=== PATIENT | female | born 1985 | race Hispanic/Latino ===

== ENCOUNTER 2021-08-21 17:15 | Emergency (ER) | payer OTHER, MEDICAID, SELFPAY ==
[2021-08-21 17:26] VITALS: BP 119/75; PULSE 89; RESP 16; TEMP 36.6; O2SAT 99; BMI 19.7
[2021-08-21 18:16] LABS: Add Manual Diff / Slide Review NO; Basophils Absolute Auto 100 /uL (0-100); Basophils Percent Auto 0.9 % (0-2); Eosinophils Absolute Auto 700 /uL (0-450); Hematocrit 36.7 % (36-46); Hemoglobin 12.3 g/dL (12.0-16.0); Lymphocytes Absolute Auto 2700 /uL (1100-4500); Lymphocytes Percent Auto 28.1 % (25-40); Mean Corpuscular HGB Conc 33.6 % (30-36); Mean Corpuscular Hemoglobin 27.3 PG (26-34); Mean Corpuscular Volume 81.1 fL (80-100); Monocytes Absolute Auto 700 /uL (0-900); Neutrophils Absolute Auto 5600 /uL (1500-7000); Platelet Count 431 X10^3/uL (150-400); Red Blood Cell Count 4.53 X10^6/uL (4.0-5.2); White Blood Cell Count 9.7 X10^3/uL (4.5-11.0)
[2021-08-21 18:21] LABS: Alanine Aminotransferase 10 IU/L (<35); Albumin 3.9 g/dL (3.5-5.0); Albumin Globulin Ratio 0.9 (1.0-2.8); Alkaline Phosphatase 77 U/L (38-126); Aspartate Aminotransferase 17 IU/L (14-36); BUN Creatinine Ratio 21.3 (6-22); Bilirubin Total 0.4 mg/dL (0.2-1.3); Blood Urea Nitrogen 10 mg/dL (7-17); Carbon Dioxide 24 mmol/L (22-32); Chloride 104 mmol/L (98-107); Estimated Glomerular Filt Rate > 60 mL/min (>60); Globulin 4.2 g/dL (1.7-4.1); Glucose 90 mg/dL (70-100); HEMOLYSIS < 15 (0-50); Lipase 53 U/L (23-300); Potassium 3.8 mmol/L (3.4-5.1); Sodium 136 mmol/L (137-145); Total Protein 8.1 g/dL (6.3-8.2)
[2021-08-21 20:02] VITALS: BP 114/63; PULSE 88; RESP 16; O2SAT 100
[2021-08-21 20:11] VITALS: TEMP 36.8
--- NOTE | 2021-08-21 20:13 | ED_ITS ---
HPI - General Chief complaint: Abdominal Pain Stated complaint: 5 weeks , bleeding Time Seen by Provider: 08/21/21 20:12 Source: patient Mode of arrival: Ambulatory Limitations: no limitations History of Present Illness HPI Narrative: This is a female who is approximately 5 weeks who has been having some rectal bleeding. Patient has been having pain at the rectum. She has a history of ulcerative colitis she has been off any prescription medications for several years and was using herbal options but found that this was not safe in so she has stopped these. Patient states that she has been having increasing bleeding with bowel movements which has been bright red. It is painful right at the rectum and feels like shards glass by her description. Patient states that her stools have been more formed typically they are very loose and liquidy and is they become more solid it has become more painful. She has had some bloating in her lower abdomen. She states this does not feel like her typical flares which are usually left-sided. She has not had any vaginal b leeding or discharge. She denies any dysuria urgency or frequency. No lightheadedness or passing out, no chest pain or shortness of breath. Patient states she is otherwise healthy. She was seen a corporate travel consultant in the past but had lost her insurance. She is currently in process of regaining it and has been working on setting up follow-up with a provider locally. She denies other major surgeries. Allergic to latex. Related Data Allergies Allergy/AdvReac Type Severity Reaction Status Date / Time Latex, Natural Rubber AdvReac Verified 08/25/17 19:06 Review of Systems Review of Systems ROS Unobtainable: All systems reviewed & are unremarkable except as noted in HPI and below Exam Narrative Exam Narrative: GENERAL: Alert and oriented x three, well-appearing female in mild distress. HEENT: Head normocephalic, atraumatic, EOMI, pupils reactive, face symmetric, moist mucous membranes NECK: Supple, full range of motion CARDIOVASCULAR: Regular rate and rhythm without murmurs, rubs or gallops. RESPIRATORY: Breath sounds equal bilaterally, no wheezes rales or rhonchi. ABDOMEN: Soft, nontender. Normoactive bowel sounds all 4 quadrants. No guarding or rebound, rigidity, no mass, patient has small hemorrhoids on digital rectal exam, no bright red blood but patient is tender. No obvious fissures or external changes to the skin. : No CVA tenderness EXTREMITIES: Normal range of motion, no clubbing or edema. Neurovascularly intact NEUROLOGICAL: Cranial nerves II through XII grossly intact. Moving all extremities SKIN: Warm, dry, no petechiae, no rashes or lesions. Initial Vital Signs Initial Vital Signs: Vital Signs Temperature 97.8 F 08/21/21 17:26 Pulse Rate 89 08/21/21 17:26 Respiratory Rate 16 08/21/21 17:26 Blood Pressure 119/75 08/21/21 17:26 Pulse Oximetry 99 08/21/21 17:26 Course Orders Ordered: ED Orders 08/21/21 19:30 Urine Microscopic Stat 08/21/21 20:20 US OB <= 14 weeks fetus Stat Reevaluation(s) Reevaluation #1: Updated patient on her current findings. We discussed options for treatment. Suppository such as Proctofoam has some risk versus benefit but she can do magnesium citrate tox hemorrhoid beds externally. Time: 21:25 Vital Signs Vital signs: Vital Signs - 8 hr 08/21/21 20:02 08/21/21 20:11 08/21/21 21:35 Temperature 98.2 F Pulse Rate 88 79 Respiratory Rate 16 18 Blood Pressure 114/63 134/76 Pulse Oximetry 100 100 MDM - OB/Uterine Contractions Lab Data Result diagrams: 08/21/21 17:20 08/21/21 17:20 Labs: Lab Results 08/21/21 08/21/21 08/21/21 Range/Units 17:20 17:20 17:40 WBC 9.7 (4.5-11.0) X10^3/uL RBC 4.53 (4.0-5.2) X10^6/uL Hgb 12.3 (12.0-16.0) g/dL Hct 36.7 (36-46) % MCV 81.1 (80-100) fL MCH 27.3 (26-34) PG MCHC 33.6 (30-36) % RDW 20.0 H (11.6-14.8) % Plt Count 431 H (150-400) X10^3/uL Neut % (Auto) 57.0 (50-75) % Lymph % (Auto) 28.1 (25-40) % [place] % (Auto) 7.0 (3-14) % Eos % (Auto) 7.0 H (2-4) % Baso % (Auto) 0.9 (0-2) % Neut # (Auto) 5600 (0533-7015) /uL Lymph # (Auto) 2700 (8720-4715) /uL [place] # (Auto) 700 (0-900) /uL Eos # (Auto) 700 H (0-450) /uL Baso # (Auto) 100 (0-100) /uL Sodium 136 L (137-145) mmol/L Potassium 3.8 (3.4-5.1) mmol/L Chloride 104 (98-107) mmol/L Carbon Dioxide 24 (22-32) mmol/L BUN 10 (7-17) mg/dL Creatinine 0.47 L (0.52-1.04) mg/dL Estimated GFR > 60 (>60) mL/min BUN/Creatinine Ratio 21.3 (6-22) Glucose 90 (70-100) mg/dL Calcium 9.0 (8.4-10.2) mg/dL Total Bilirubin 0.4 (0.2-1.3) mg/dL AST 17 (14-36) IU/L ALT 10 (<35) IU/L Alkaline Phosphatase 77 (38-126) U/L Total Protein 8.1 (6.3-8.2) g/dL Albumin 3.9 (3.5-5.0) g/dL Globulin 4.2 H (1.7-4.1) g/dL Albumin/Globulin Ratio 0.9 L (1.0-2.8) Lipase 53 (23-300) U/L HCG, Quant 6279.7 mIU/mL Urine RBC (0-5/HPF) Urine WBC (0-5/HPF) Ur Squamous Epith Cells (0-5/HPF) Urine Bacteria (None) Granular Casts (None) Urine Mucus (Negative) Ur Culture Indicated? Blood Type 08/21/21 08/21/21 Range/Units 17:40 19:30 WBC (4.5-11.0) X10^3/uL RBC (4.0-5.2) X10^6/uL Hgb (12.0-16.0) g/dL Hct (36-46) % MCV (80-100) fL MCH (26-34) PG MCHC (30-36) % RDW (11.6-14.8) % Plt Count (150-400) X10^3/uL Neut % (Auto) (50-75) % Lymph % (Auto) (25-40) % [place] % (Auto) (3-14) % Eos % (Auto) (2-4) % Baso % (Auto) (0-2) % Neut # (Auto) (6432-5335) /uL Lymph # (Auto) (8378-7626) /uL [place] # (Auto) (0-900) /uL Eos # (Auto) (0-450) /uL Baso # (Auto) (0-100) /uL Sodium (137-145) mmol/L Potassium (3.4-5.1) mmol/L Chloride (98-107) mmol/L Carbon Dioxide (22-32) mmol/L BUN (7-17) mg/dL Creatinine (0.52-1.04) mg/dL Estimated GFR (>60) mL/min BUN/Creatinine Ratio (6-22) Glucose (70-100) mg/dL Calcium (8.4-10.2) mg/dL Total Bilirubin (0.2-1.3) mg/dL AST (14-36) IU/L ALT (<35) IU/L Alkaline Phosphatase (38-126) U/L Total Protein (6.3-8.2) g/dL Albumin (3.5-5.0) g/dL Globulin (1.7-4.1) g/dL Albumin/Globulin Ratio (1.0-2.8) Lipase (23-300) U/L HCG, Quant mIU/mL Urine RBC 0-1/hpf (0-5/HPF) Urine WBC 0-1/hpf (0-5/HPF) Ur Squamous Epith Cells 0-1 /hpf (0-5/HPF) Urine Bacteria Occasional (0-1) (None) Granular Casts 0-1/lpf (None) Urine Mucus 1+ H (Negative) Ur Culture Indicated? Cult not indicated Blood Type O Positive Point of Care Testing Test Results Positive Urine Dip Bedside Urine Glucose Negative Bedside Urine Bilirubin - Negative Bedside Urine Ketone +/- 5 Urine Specific [place] 1.015 Bedside Urine Occult Blood - Negative Bedside Urine pH 6.0 Bedside Urine Protein +/- 15 Bedside Urine Urobilinogen - Negative Bedside Urine Nitrite - Negative Bedside Urine Leukocytes - Negative Esterase Imaging Data US - OB: Radiologist's Impression: Launch?[address] [address] Ultrasound Report Signed Patient: Angi Muniz MR#: [id number] : 1985 Acct:[id number] Age/Sex: 35 / F Date of Service: 08/21/21 Loc: ED Accession Number: [id number] ?? Procedure: US OB <= 14 weeks fetus Ordering Provider: Katelyn Shin D.O. PROCEDURE:? US OB <= 14 WEEKS FETUS ? INDICATIONS:? ABDOMINAL PAIN WITH ? OUTSIDE/PRIOR DATING DATA:? Last menstrual period (LMP):? 07/16/2021.? LMP-based estimated date of delivery (KAMILAH):? 04/22/2022.? First dating scan (date and location):? 08/21/2021.? Estimated date of delivery (KAMILAH) from first dating scan:? 04/18/2022 by gestational sac diameter. ? TECHNIQUE:? Real-time scanning was performed of the fetus and maternal pelvic organs, with image documentation.? Endovaginal scanning was also performed to better visualize the fetus and maternal ovaries.? ? COMPARISON:? None. ? FINDINGS:? ? Embryo:? There is an intrauterine with a gestational sac, yolk sac, and small pole demonstrated.? The mean gestational sac diameter measures 1.0 cm corresponding to a gestational age of 5 weeks 5 days.? The diminutive pole measures approximately 0.1 cm and is out of range for dating.? No heart motion identified, likely due to early gestational age.? No subchorionic hematoma identified. ? Maternal organs:? The ovaries appear within normal size limits, measuring 3.0 x 2.2 x 1.8 cm on the right and 3.3 x 2.4 x 3.3 cm on the left.? There is a thick-walled cyst in the left ovary measuring up to 2.0 cm consistent with a corpus luteal cyst. ? ? IMPRESSION:? ? 1. Intrauterine with a mean sac diameter corresponding to a calculated gestational age of 5 weeks 5 days corresponding to estimated delivery date of 04/18/2022. ? 2. Probable diminutive early pole identified along the yolk sac.? No heart motion was detected, likely due to early gestational age.? Recommend clinical follow-up and a short-term repeat ultrasound if indicated. ? 3. Probable corpus luteal cyst in the left ovary. ? We strive to produce accurate, complete, and clear reports of imaging services. To assist us in improving patient care, this report was composed using standard report templates and voice recognition software. Therefore, it may contain abnormal punctuation, insertions and/or omissions. Occasional wrong-word or sound-alike substitutions may occur. Though we review the report and make efforts to correct it, we do recomme nd that the report be read carefully in proper context to recognize any text inaccuracies. ? ? Dictated by: Shade Hinkle M.D. on 08/21/2021 at 23:20 ? ? Approved by: Shade Hinkle M.D. on 08/21/2021 at 23:25?? MDM Narrative Medical decision making narrative: This is a female approximately 5 weeks by dates with ultrasound consistent with dates who has had rectal bleeding with a history of ulcerative colitis. Patient has possibly hemorrhoids verses UC at the rectal area. She is no longer on any prescription medications. We discussed helping her follow-up with a corporate travel consultant and she is also in process of setting up follow-up with primary care in/. On exam there are some small hemorrhoids she is quite tender. Labs are otherwise reassuring. She had some bloating and abdominal discomfort but has not had vaginal bleeding ultrasound was obtained does not show any clear signs of ectopic pole was too small to date. Return precautions discussed, all questions answered. Patient is already in process of setting up follow up. Discharge Plan Departure Patient Disposition: Home Clinical Impression: Hemorrhoids, Activity Restrictions/Additional Instructions: Your exam today is consistent with either hemorrhoids and may be complicated by flare of ulcerative colitis at the rectum. Please call to follow up with provider, option is included below. You can contact your prior corporate travel consultant ask if a proctocort suppository would be appropriate. You may take magnesium citrate to help soften your stools. You can use tucks hemorrhoid pads to the affected area but are more helpful externally. I would recommend continue to do Sitz baths or warm baths regularly. Please return for rapidly worsening pain, lightheadedness or passing out, new or worsening abdominal pain, persistent vomiting, vaginal bleeding, worsening rectal bleeding, large clots or other new or concerning symptoms. Referrals: Yuliya Urbina MD [Primary Care Provider] - Dmitry Pretty MD [Physician] -
--- NOTE | 2021-08-21 20:20 | DI.US.S_ITS ---
PROCEDURE: US OB <= 14 WEEKS FETUS INDICATIONS: ABDOMINAL PAIN WITH OUTSIDE/PRIOR DATING DATA: Last menstrual period (LMP): 07/16/2021. LMP-based estimated date of delivery (KAMILAH): 04/22/2022. First dating scan (date and location): 08/21/2021. Estimated date of delivery (KAMILAH) from first dating scan: 04/18/2022 by gestational sac diameter. TECHNIQUE: Real-time scanning was performed of the fetus and maternal pelvic organs, with image documentation. Endovaginal scanning was also performed to better visualize the fetus and maternal ovaries. COMPARISON: None. FINDINGS: Embryo: There is an intrauterine with a gestational sac, yolk sac, and small pole demonstrated. The mean gestational sac diameter measures 1.0 cm corresponding to a gestational age of 5 weeks 5 days. The diminutive pole measures approximately 0.1 cm and is out of range for dating. No heart motion identified, likely due to early gestational age. No subchorionic hematoma identified. Maternal organs: The ovaries appear within normal size limits, measuring 3.0 x 2.2 x 1.8 cm on the right and 3.3 x 2.4 x 3.3 cm on the left. There is a thick-walled cyst in the left ovary measuring up to 2.0 cm consistent with a corpus luteal cyst. IMPRESSION: 1. Intrauterine with a mean sac diameter corresponding to a calculated gestational age of 5 weeks 5 days corresponding to estimated delivery date of 04/18/2022. 2. Probable diminutive early pole identified along the yolk sac. No heart motion was detected, likely due to early gestational age. Recommend clinical follow-up and a short-term repeat ultrasound if indicated. 3. Probable corpus luteal cyst in the left ovary. We strive to produce accurate, complete, and clear reports of imaging services. To assist us in improving patient care, this report was composed using standard report templates and voice recognition software. Therefore, it may contain abnormal punctuation, insertions and/or omissions. Occasional wrong-word or sound-alike substitutions may occur. Though we review the report and make efforts to correct it, we do recommend that the report be read carefully in proper context to recognize any text inaccuracies. Dictated by: Shade Hinkle M.D. on 08/21/2021 at 23:20 Approved by: Shade Hinkle M.D. on 08/21/2021 at 23:25
[2021-08-21 20:31] LABS: Bacteria Urine Occasional (0-1); Culture Indicated Urine Cult Not Indicated; Granular Casts Urine 0-1/LPF; Mucus Urine 1+ (Negative); RBC Urine 0-1/HPF (0-5/HPF); Squamous Epithelial Cell Urine 0-1 /HPF (0-5/HPF); WBC Urine 0-1/HPF (0-5/HPF)
[2021-08-21 20:44] LABS: HCG Quantitative /Beta subunit 6279.7 mIU/mL
[2021-08-21 21:35] VITALS: BP 134/76; PULSE 79; RESP 18; O2SAT 100
== END 2021-08-21 21:49 | disposition home or self-care (01) ==
PROVIDERS: Emergency Medicine; Emergency Provider Emergency Medicine; PCP Family Medicine
DX: O22.41 Hemorrhoids in pregnancy, first trimester (principal); Z3A.01 Less than 8 weeks gestation of pregnancy
CPT/HCPCS: 36415; 76801; 76817; 80053; 81003; 81015; 81025; 83690; 84702; 85025; 86900; 86901; 99283

== ENCOUNTER → 2021-09-24 16:34 | Outpatient (CLI) | payer OTHER, MEDICAID, SELFPAY ==
[2021-09-24 18:26] LABS: Add Manual Diff / Slide Review NO; Basophils Absolute Auto 0 /uL (0-100); Basophils Percent Auto 0.5 % (0-2); Eosinophils Absolute Auto 600 /uL (0-450); Eosinophils Percent Auto 6.4 % (2-4); Hemoglobin 11.9 g/dL (12.0-16.0); Lymphocytes Absolute Auto 2600 /uL (1100-4500); Lymphocytes Percent Auto 27.9 % (25-40); Mean Corpuscular HGB Conc 33.1 % (30-36); Mean Corpuscular Hemoglobin 27.2 PG (26-34); Monocytes Absolute Auto 600 /uL (0-900); Monocytes Percent Auto 6.2 % (3-14); Neutrophils Absolute Auto 5400 /uL (1500-7000); Platelet Count 449 X10^3/uL (150-400); Red Blood Cell Count 4.39 X10^6/uL (4.0-5.2); Red Cell Distribution Width 15.4 % (11.6-14.8); White Blood Cell Count 9.2 X10^3/uL (4.5-11.0)
[2021-09-24 19:21] LABS: Hepatitis B Surface Antigen NEGATIVE s/c (NEGATIVE); Rubella Antibody IgG 2.9 IU/mL (>15)
[2021-09-24 19:35] LABS: HIV 1 & 2 Ab/Ag 4th Gen Combo NEGATIVE (NEGATIVE); Hep C Virus Ab w/Reflex Quant NEGATIVE s/c (NEGATIVE)
[2021-09-24 19:56] LABS: Appearance Urine UA CLEAR; Bilirubin Urine UA NEGATIVE (NEGATIVE); Color Urine UA YELLOW; Glucose Urine UA NEGATIVE (Negative); Ketones Urine UA NEGATIVE (NEGATIVE); Leukocyte Esterase Urine UA NEGATIVE (NEGATIVE); Nitrite Urine UA NEGATIVE (Negative); Occult Blood Urine UA TRACE-LYSED (Negative); Protein Urine UA NEGATIVE (Negative); Urobilinogen Urine UA 0.2 E.U./dL (0.2)
[2021-09-24 20:01] LABS: pH Urine UA 6.5 (4.5-8.0)
[2021-09-25 07:12] LABS: RPR Screen Non Reactive (Non Reactive)
[2021-09-25 10:39] LABS: Varicella IgG Antibody 693 index (Immune >165)
== END ==
PROVIDERS: PCP Family Medicine; Referring Provider Obstetrics & Gynecology; Visit Provider Obstetrics & Gynecology
DX: Z34.01 Encounter for supervision of normal first pregnancy, first trimester (principal)
CPT/HCPCS: 36415; 80055; 81003; 86787; 86803; 86850; 86900; 86901; 87086; 87389

== ENCOUNTER → 2021-10-16 18:22 | Outpatient (ROUT) | payer OTHER, MEDICAID, SELFPAY ==
[2021-10-16 19:54] LABS: Urine N gonorrhoeae NOT DETECTED
[2021-10-16 20:02] LABS: Urine Chlamydia NOT DETECTED
== END ==
PROVIDERS: PCP Family Medicine; Visit Provider Obstetrics & Gynecology
DX: Z34.02 Encounter for supervision of normal first pregnancy, second trimester (principal); Z3A.13 13 weeks gestation of pregnancy
CPT/HCPCS: 87491; 87591

== ENCOUNTER → 2021-11-13 12:02 | Outpatient (CLI) | payer OTHER, MEDICAID, SELFPAY ==
[2021-11-16 22:07] LABS: AFP Value 40.8 ng/mL (.); Gest Age on Col Date 17.1 weeks (.); Insulin Dep Diabetes No (.); OSBR Risk 1IN 10000 (.); Results Report (.); Test Results *Screen Negative* (.)
== END ==
PROVIDERS: PCP Registered Nurse Diabetes Educator; Referring Provider Obstetrics & Gynecology; Visit Provider Obstetrics & Gynecology
DX: Z34.02 Encounter for supervision of normal first pregnancy, second trimester (principal); Z3A.17 17 weeks gestation of pregnancy
CPT/HCPCS: 36415; 82105

== ENCOUNTER → 2021-12-04 14:54 | Outpatient (CLI) | payer OTHER, MEDICAID, SELFPAY ==
--- NOTE | 2021-12-04 14:55 | DI.US.S_ITS ---
PROCEDURE: US OB >= 14 WEEKS FETUS INDICATIONS: ANATOMY OUTSIDE/PRIOR DATING DATA: Last menstrual period (LMP): 07/16/2021. LMP-based estimated date of delivery (KAMILAH): 04/22/2022 First dating scan (date and location): 08/21/2021. Estimated date of delivery (KAMILAH) from first dating scan: 04/18/2022. TECHNIQUE: Real-time scanning was performed of the fetus, with image documentation and biometric measurements. Endovaginal scanning: Performed COMPARISON: None. FINDINGS: General: A single living intrauterine gestation is present. Presentation: Breech. Placenta: Placental position is anterior, without previa. Amniotic fluid index: 18.5 cm, normal range is 5-24 cm. Single deepest vertical pocket is 6.6 cm. heart rate: 152 beats per minute. Maternal cervical canal: Cervix is widely dilated. Internal os is dilated to 5 mm while the mid cervix is dilated to 1.5 cm. There is approximately 5 mm of cervix length left between funneling and the external os. biometrics: Biparietal diameter: 4.7 cm, 20 weeks 2 days Head circumference: 18.8 cm, 20 weeks 3 days Abdominal circumference: 14.8 cm, 20 weeks 0 days Femur length: 3.6 cm, 21 week 3 days Clinically estimated gestational age: 20 week 5 day Composite gestational age from present scan: 20 week 4 day Estimated weight and percentile: 361 g, 41 percentile Anatomic survey: Neuro: Ventricles are non-dilated at less than 10 mm. Cisterna magna is normal at 3-11 mm. Cerebellum is normal in size and morphology. Nuchal skin fold: Normal at less than 6 mm between 14-21 weeks gestational age. Face: Nose and lips, facial profile are normal. Spine: No evidence for spina bifida. Heart: 4-chambered heart is present, with normal ventricular outflow tracts. Diaphragm: Diaphragm is intact. Stomach: Left-sided stomach is present. Kidneys: No hydronephrosis. Normal is less than 5 mm in 2nd trimester, less than 7 mm in 3rd trimester. Cord: 3-vessel cord has orthotopic insertion. Bladder: Normal in size. Extremities: All 4 extremities identified. IMPRESSION: 1. Single live intrauterine consistent with a 20 week 4 day gestation by current ultrasound. 2. Incompetent cervix. There is significant funneling in the mid endocervical canal with approximately 5 mm of cervical length remaining Note: Critical results were discussed with the patient's on-call physician in the birthing center at 06:07 PM [place] time on 12/04/21 Approved by: Guillermo Gonzalez M.D. on 12/04/2021 at 18:09
== END ==
PROVIDERS: PCP Registered Nurse Diabetes Educator; Referring Provider Obstetrics & Gynecology; Visit Provider Obstetrics & Gynecology
DX: Z36.89 Encounter for other specified antenatal screening (principal); O34.32 Maternal care for cervical incompetence, second trimester; Z3A.20 20 weeks gestation of pregnancy
CPT/HCPCS: 76811

== ENCOUNTER 2021-12-04 17:12 | Observation (INO) | payer OTHER, MEDICAID, SELFPAY ==
--- NOTE | 2021-12-04 20:35 | PM.OBHP.1 ---
OB HPI Date/Time Date of admission: 12/04/21 Date Patient Seen: 12/04/21 Time Patient Seen: 18:00 History of Present Condition Chief complaint: Eval : 1 Estimated Gestational Age (weeks): 21 Narrative: Angi Muniz is a 35 year old female who was sent to the office from her 20 week ultrasound due to finding of incompetent cervix on the ultrasound. She denies any significant cramping. Feels rare cramps, then resolves. She has noted some increased white discharge, and occasional watery discharge but nothing that she has needed pain the liners for and has not noted this in her pants. No vaginal bleeding. She has been feeling movement. has been uncomplicated. She was noted to have an arcuate uterus on her initial 9 week office OB ultrasound. She has had no cervical surgical procedures. Indications Other reason(s) for admission: Incompetent cervix with cervical length 5 mm beneath the funneling. History of Present care: good care Dating criteria: LMP confirmed by 1st trimester US Ultrasounds: normal 1st trimester US and abnormal US findings ( Incompetent cervix, see report. Normal survey. Anterior placenta.) Obstetrical complications: other (incompetent cervix dx today) Narrative: [place] [address] Ultrasound Report Signed Patient: Angi Muniz MR#: [id number] : 1985 Acct:[id number] Age/Sex: 35 / F Date of Service: 12/04/21 Loc: US Accession Number: [id number] ?? Procedure: US OB >= 14 weeks Fetus Ordering Provider: Sharri Sykes MD PROCEDURE:? US OB >= 14 WEEKS FETUS ? INDICATIONS:? ANATOMY ? OUTSIDE/PRIOR DATING DATA:? Last menstrual period (LMP):? 07/16/2021.? LMP-based estimated date of delivery (KAMILAH):? 04/22/2022 First dating scan (date and location):? 08/21/2021.? Estimated date of delivery (KAMILAH) from first dating scan:? 04/18/2022. ? TECHNIQUE:? Real-time scanning was performed of the fetus, with image documentation and biometric measurements.? Endovaginal scanning:? Performed ? COMPARISON:? None. ? ? FINDINGS:? ? General:? A single living intrauterine gestation is present.? Presentation:? Breech.? Placenta:? Placental position is anterior, without previa.? ? Amniotic fluid index:? 18.5 cm, normal range is 5-24 cm.? Single deepest vertical pocket is 6.6 cm. heart rate:? 152 beats per minute.? Maternal cervical canal:? Cervix is widely dilated.? Internal os is dilated to 5 mm while the mid cervix is dilated to 1.5 cm.? There is approximately 5 mm of cervix length left between funneling and the external os. ? biometrics:? Biparietal diameter:? 4.7 cm, 20 weeks 2 days Head circumference:? 18.8 cm, 20 weeks 3 days Abdominal circumference:? 14.8 cm, 20 weeks 0 days Femur length:? 3.6 cm, 21 week 3 days Clinically estimated gestational age:? 20 week 5 day? Composite gestational age from present scan:? 20 week 4 day Estimated weight and percentile:? 361 g, 41 percentile ? Anatomic survey:? Neuro:? Ventricles are non-dilated at less than 10 mm.? Cisterna magna is normal at 3-11 mm.? Cerebellum is normal in size and morphology. Nuchal skin fold:? Normal at less than 6 mm between 14-21 weeks gestational age.? Face:? Nose and lips, facial profile are normal.? Spine:? No evidence for spina bifida.? Heart:? 4-chambered heart is present, with normal ventricular outflow tracts.? Diaphragm:? Diaphragm is intact.? Stomach:? Left-sided stomach is present.? Kidneys:? No hydronephrosis.? Normal is less than 5 mm in 2nd trimester, less than 7 mm in 3rd trimester.? Cord:? 3-vessel cord has orthotopic insertion.? Bladder:? Normal in size.? Extremities:? All 4 extremities identified.? ? ? IMPRESSION:? ? 1. Single live intrauterine consistent with a 20 week 4 day gestation by current ultrasound. ? 2. Incompetent cervix.? There is significant funneling in the mid endocervical canal with approximately 5 mm of cervical length remaining ? Note:? Critical results were discussed with the patient's on-call physician in the birthing center at 06:07 PM [place] time on 12/04/21 Preadmission Labs Blood type: O (+) positive -: Antibody screen: negative, HBsAG: negative, HSV 1: negative, HSV 2: negative and RPR/VDLR: negative -: Chlamydia screen: not detected and Gonorrhea screen: not detected -: Rubella: not immune and Varicella: immune HCAB: negative Cell-free DNA: low risk female MSAFP normal Evaluation Evaluation Baseline heart rate: 150 Variability: Average (6-10) Dilation: 1-2 cm Consistency: soft Comments: On toco, some initial uterine irritability, 1 small contraction over first 15 minutes, then resolved. [facility] Medical History Anemia (~1994) PCOS (polycystic ovarian syndrome) Ulcerative colitis (~2008) Family History Mother Diabetes mellitus Hypertension Grandmother Brain aneurysm Father Cirrhosis Grandfather Kidney failure Grandfather Diabetes mellitus History of heart disease Social History marital status: unmarried,living together household members: significant other lives independently: Yes housing: house pets and animals: No education level: college (Some college) occupational status: unemployed current occupational exposures/hazards: No special chris needs: No travel history: over 6 months ago seatbelt use: always helmet use: Yes water heater temp set < 120 deg: No (Will check and ) working smoke detector in home: Yes fire extinguisher in home: Yes carbon monox detector in home: Yes firearms in home: No do you feel safe at home: Yes Smoking Status: Never smoker second hand exposure: Yes (s/o recently quit when pt found out she was ) alcohol intake: never substance use type: marijuana (previously used with UC flares, not since ) during the past year weight has: remained stable well-balanced diet: daily or most days daily servings fruits/ve-4 caffeine: No Type(s) of exercise: bicycling and weight lifting frequency: 3-4 times per week Meds Home Medications and Allergies Home Medications Medication Instructions Recorded Confirmed Type L.acid,shira-B.animal,bifid, See Rx Instructions .Route .COMPLEX 09/18/21 12/04/21 History 50 billion cell capsule,delayed rel (Fortify [place] Women Probiotic) prenat.vits,neha,qrl-gzck-ewkly 1 tab PO DAILY 09/18/21 12/04/21 History ondansetron 4 mg disintegrating 4 mg PO Q6H PRN nausea and 10/16/21 12/04/21 Rx tablet vomiting #30 tabs Allergies Allergy/AdvReac Type Severity Reaction Status Date / Time Latex, Natural Rubber Allergy Severe Anaphylaxis Verified 12/04/21 14:10 OB Exam Narrative Exam Narrative: General: Well-appearing female. anxious, but no acute physical distress. Abdomen gravid, nontender. Normal external genitalia Speculum exam: White discharge, No pooling of fluid. Negative fern test, +nitrazine Visually cervix approx 1/2 cm Digital exam: 1cm dilated external os, approx 2.5-3cm long, somewhat full ROSARIO Assessment and Plan Assessment and Plan Assessment and Plan narrative: 35 yo G1 @ 21 wk 1day EGA with incompetent cervix. No signs of labor. No signs of infection on exam. Called [facility], who did not have availability for the patient, but recommended check with [facility]. Patient being transferred to [facility], accepting physician Dr. Dea Topete, for evaluation for possible emergency cerclage. Will defer any labs to there. Discuss with the patient the incompetent cervix. Patient agreeable to transfer To [facility],for evaluation for possible cerclage.
[2021-12-04 20:59] VITALS: BP 108/59
[2021-12-04 21:30] LABS: COVID19 -Nasal RAPID Negative (Negative)
== END 2021-12-05 00:40 | disposition short-term general hospital (02) ==
PROVIDERS: Obstetrics & Gynecology; Admitting Provider Obstetrics & Gynecology; PCP Registered Nurse Diabetes Educator; Referring Provider Obstetrics & Gynecology; Visit Provider Obstetrics & Gynecology
DX: O34.32 Maternal care for cervical incompetence, second trimester (principal); Z3A.21 21 weeks gestation of pregnancy; Z20.822 Contact with and (suspected) exposure to COVID-19; Z36.89 Encounter for other specified antenatal screening; Z3A.20 20 weeks gestation of pregnancy
CPT/HCPCS: 59050; 76811; 87635; 96360; C9803; G0378; G0379

== ENCOUNTER 2021-12-10 10:40 | Emergency (ER) | payer OTHER, MEDICAID, SELFPAY ==
[2021-12-10 10:45] VITALS: BP 110/70; PULSE 78; RESP 18; TEMP 36.8; O2SAT 100; BMI 21.2
--- NOTE | 2021-12-10 10:59 | DI.US.S_ITS ---
PROCEDURE: US PERIPH VENOUS UP EXTREM LT INDICATIONS: pain, redness, swelling, recent IV TECHNIQUE: Real-time imaging, as well as color and pulse Doppler interrogation, was performed of the left upper extremity deep veins from the inferior neck to the antecubital fossa. COMPARISON: None. FINDINGS: The internal jugular vein, visualized portions of the subclavian vein, axillary, and brachial veins are free of intraluminal thrombus. Where physically possible, the veins are normally compressible. Color and pulse Doppler demonstrate normal intraluminal flow, with expected phasicity and pulsatility. Additional scanning of the cephalic and basilic veins of the superficial system demonstrate normal compressibility, without thrombus. There is acute thrombosis of the left cephalic vein in the forearm from the wrist to minimally above the elbow. This is a superficial vein. IMPRESSION: 1. Acute thrombosis of the left cephalic vein from the wrist to minimally above the elbow. 2. No evidence acute DVT of the left upper extremity. Dictated by: Homero Andres M.D. on 12/10/2021 at 12:33 Approved by: Homero Andres M.D. on 12/10/2021 at 12:36
--- NOTE | 2021-12-10 10:59 | ED_ITS ---
HPI - Extremity Problem General Chief complaint: Extremity Problem,Nontraumatic Stated complaint: Infection in arm after having IV for 4 days Time Seen by Provider: 12/10/21 10:46 History of Present Illness HPI Narrative: 36-year-old female nonsmoker with a history of ulcerative colitis is a at 20 weeks and presents with her for evaluation of pain, redness and swelling in her left arm in the location of a recent IV. She had presented here for 20 week evaluation and on exam was found to have an abnormal cervix and was eventually transferred to [place] where she was recently hospitalized for a cervical cerclage. She had an IV in place in her left forearm. Over the past day or 2 she is noticed an increasing area of redness, pain and swelling in that location. She denies any systemic findings such as dizziness, weakness or lightheadedness. She denies any fever or chills. She denies nausea, vomiting or diarrhea. She denies any abdominal or pelvic pain and has a scant amount of to be expected vaginal discharge. Related Data Home Medications Medication Instructions Recorded Confirmed L.acid,shira-B.animal,bifid,infant See Rx Instructions .Route .COMPLEX 09/18/21 12/10/21 50 billion cell capsule,delayed rel ([employer] [place] Women Probiotic) prenat.vits,neha,[id number] 1 tab PO DAILY 09/18/21 12/10/21 Previous Rx's Medication Instructions Recorded ondansetron 4 mg disintegrating 4 mg PO Q6H PRN nausea and 10/16/21 tablet vomiting #30 tabs Allergies Allergy/AdvReac Type Severity Reaction Status Date / Time Latex, Natural Rubber Allergy Severe Anaphylaxis Verified 12/04/21 14:10 Review of Systems Review of Systems Narrative: GENERAL: Denies chills, fatigue, malaise, fever, sweats. HEENT: Denies sinus pain, ear pain, sore throat, difficulty swallowing, dizziness. RESPIRATORY: Denies dyspnea, cough, wheezing, hemoptysis, sputum. CARDIOVASCULAR: Denies chest pain, palpitations, orthopnea, edema, GASTROINTESTINAL: Denies nausea, vomiting, abdominal pain, diarrhea, constipation, melena. : Denies dysuria, frequency, incontinence, hematuria, urinary retention. MUSCULOSKELETAL: denies weakness, joint pain, or bony pain SKIN: See HPI NEUROLOGIC: Denies weakness, headache, numbness, change in speech, confusion, seizures, incoordination. PSYCHIATRIC: No concerning psychosocial issues. 12 point review of systems is negative except for those stated above Patient History Medical History Anemia (~1994) PCOS (polycystic ovarian syndrome) Ulcerative colitis (~2008) Family History Mother Diabetes mellitus Hypertension Grandmother Brain aneurysm Father Cirrhosis Grandfather Kidney failure Grandfather Diabetes mellitus History of heart disease Social History marital status: unmarried,living together household members: significant other lives independently: Yes housing: house pets and animals: No education level: college (Some college) occupational status: unemployed current occupational exposures/hazards: No special chris needs: No travel history: over 6 months ago seatbelt use: always helmet use: Yes water heater temp set < 120 deg: No (Will check and ) working smoke detector in home: Yes fire extinguisher in home: Yes carbon monox detector in home: Yes firearms in home: No do you feel safe at home: Yes Smoking Status: Never smoker second hand exposure: Yes (s/o recently quit when pt found out she was ) alcohol intake: never substance use type: marijuana (previously used with UC flares, not since ) during the past year weight has: remained stable well-balanced diet: daily or most days daily servings fruits/ve-4 caffeine: No Type(s) of exercise: bicycling and weight lifting frequency: 3-4 times per week Smoking Status: Never smoker alcohol intake frequency: holidays/special occasions only Substance Use Type: does not use Exam Narrative Exam Narrative: GEN: AOx3 and in mild distress EYES: Pupils are equal, round, and reactive to light and accommodation. Extraoccular muscles are intact bilaterally. There is no subconjunctival hemorrhage or exudate. CHEST: Lungs are clear to auscultation bilaterally and free of wheezes, rales, or rhonchi. Heart rate is regular rhythm, there are no murmurs, clicks, rubs, or gallops. There is no chest wall tenderness. ABD: Abdomen is soft and nontender. There is no guarding or rebound. Bowel sounds are normal in all 4 quadrants. There is no mass or organomegaly. EXT: Full painless ROM of all extremities with no loss of sensation or strength. SKIN: 4 x 6 area of erythema, warmth and tenderness on volar surface of left forearm, no break in the skin, no fluctuance Initial Vital Signs Initial Vital Signs: Vital Signs Temperature 98.3 F 12/10/21 10:45 Pulse Rate 78 12/10/21 10:45 Respiratory Rate 18 12/10/21 10:45 Blood Pressure 110/70 12/10/21 10:45 Pulse Oximetry 100 12/10/21 10:45 Oxygen Delivery Method 12/10/21 10:45 Course Orders Ordered: ED Orders 12/10/21 10:59 US periph venous up extrem lt Stat Consultations Consultation #1: Discussed with on-call Radiology, though thrombus is longer than 5 cm it is quite distant from the deep venous system Consultation #2: Discussed history, physical and findings with on-call Hematology, recommends against anticoagulation, warm compresses only with appropriate discharge instructions and return precautions MDM - Extremity (Nontraumatic) MDM Narrative Medical decision making narrative: Patient with pain, redness and minimal swelling on her left forearm after having a peripheral IV for 4 days along with hospitalization. She denies any systemic complaints such as chest pain, shortness of breath or cough. She has no fever or chills. Imaging demonstrates superficial thrombophlebitis which is quite distant from the deep venous system. There was consideration of infection but thought unlikely given ultrasound findings. Furthermore, after discussion with Radiology and hematology it is most appropriate to treat with warm compresses only and no anticoagulation. Patient given return precautions and has had questions answered to her apparent satisfaction Discharge Plan Departure Patient Disposition: Home Clinical Impression: Superficial thrombophlebitis during Instructions: DI for Superficial Thrombophlebitis Activity Restrictions/Additional Instructions: *You have been diagnosed with [superficial thrombophlebitis of your left arm, likely due to a combination of recent IV, hospitalization, and your . It does not need any specific treatment other than warm compresses daily.] *What to do: *Please continue to take your regular medications as directed. [ *Please follow up with your primary care provider in 2-3 days, call for an appointment. Let them know you were seen in the Emergency Department and that we ask that you be seen in follow up. We will electronically transmit a record of today's note if your PCP is in our system *If you do not have a primary care provider please contact the [facility] Resource line at [phone]. They will ask some questions about your medical history and help get you set up with a doctor in the community. *Return to Emergency Department if you should have any new, worsening or concerning symptoms, such as [fever greater than 101 F, shaking chills, worsening pain, persistent vomiting or other bothersome symptoms] Prescriptions: No Action prenat.vits,neha,[id number] Tablet 1 tab PO DAILY [employer] [place] [facility] Probiotic 50 billion cell capsule,delayed release(DR/EC) See Rx Instructions .ROUTE .COMPLEX Rx Instructions: Take as prescribed. ondansetron 4 mg tablet,disintegrating 4 mg PO Q6H PRN (Reason: nausea and vomiting) Qty: 30 3RF Referrals: Mynor Bolaños ARNP [Primary Care Provider] - Visit Report Forms: Patient Portal/API
[2021-12-10 11:00] VITALS: BP 110/62; PULSE 86; O2SAT 100
[2021-12-10 13:30] VITALS: BP 111/68; PULSE 85; O2SAT 99
[2021-12-10 13:40] VITALS: BP 111/68; PULSE 83; RESP 16; O2SAT 99
== END 2021-12-10 13:48 | disposition home or self-care (01) ==
PROVIDERS: Emergency Provider Emergency Medicine; PCP Registered Nurse Diabetes Educator
DX: O26.892 Other specified pregnancy related conditions, second trimester (principal); T80.1XXA Vascular complications following infusion, transfusion and therapeutic injection, initial encounter; I80.8 Phlebitis and thrombophlebitis of other sites; Z3A.20 20 weeks gestation of pregnancy
CPT/HCPCS: 93971; 99281; 99283

== ENCOUNTER → 2022-02-05 14:53 | Outpatient (CLI) | payer OTHER, MEDICAID, SELFPAY ==
[2022-02-05 18:09] LABS: Hematocrit 28.4 % (36-46); Hemoglobin 9.2 g/dL (12.0-16.0)
[2022-02-05 19:11] LABS: GTT (PREG) 1 Hour PP 50gm Dose 120 mg/dL (76-139)
== END ==
PROVIDERS: PCP Registered Nurse Diabetes Educator; Referring Provider Obstetrics & Gynecology; Visit Provider Obstetrics & Gynecology
DX: Z34.02 Encounter for supervision of normal first pregnancy, second trimester (principal); Z3A.26 26 weeks gestation of pregnancy
CPT/HCPCS: 36415; 82950; 85014; 85018

== ENCOUNTER 2022-02-28 13:45 | Oncology outpatient (ONC) | payer OTHER, MEDICAID, SELFPAY ==
[2021-11-01] MEDS: LACTATED RINGERS 1,000 ML 1000 ML IV (14:10)
[2021-11-01] MEDS: ONDANSETRON 4 MG/2 ML INJ IV (14:20)
[2021-11-01 15:32] VITALS: BP 97/48; PULSE 68; RESP 16; TEMP 36.9; O2SAT 100
[2022-02-14] MEDS: IRON SUCROSE 100 MG in SODIUM CHLORIDE 0.9% 100 ML 210 MG IV (13:54)
[2022-02-14 14:04] VITALS: BP 100/50; PULSE 75; RESP 16; TEMP 36.6; O2SAT 98
[2022-02-28] MEDS: IRON SUCROSE 200 MG in SODIUM CHLORIDE 0.9% 100 ML 220 MG IV (14:49)
[2022-02-28 15:00] VITALS: BP 52/27; PULSE 64; O2SAT 94
[2022-02-28 15:05] VITALS: BP 68/45; PULSE 69; O2SAT 99
[2022-02-28 15:10] VITALS: BP 99/56; PULSE 70; O2SAT 100
--- NOTE | 2022-02-28 15:12 | PC.NURSE ---
Addendum entered by Barbara Mendoza R.N. 02/28/22 16:26: This nurse called Dr. Sykes's office and spoke with Blessing, triage nurse at about 1507 when BP of 68/45 had just been measured. Blessing stated she would notify Dr. Sykes and get back to us. This nurse called again at approx 1545 to report patient doing better but asking for orders from Dr. Sykes. Per Blessing VO from Dr. Sykes one liter LR hung and patient transferred to [facility]. Times below are all in the 1500s not the 1600s which were recorded from the BP machine which has the time set one hour later. Original Note: BP DROP: PATIENT HERE FOR SECOND DOSE OF IRON (CONCENTRATION 2MG/ML, FIRST DOSE WAS 1MG/ML). ABOUT 10 MINUTES INTO THE INFUSION PATIENT REPORTED FEELING NAUSEUS AND LIGHT HEADED. INFUSION STOPPED. 1601:BP 52/27, P 64, SATS 94, PATIENT LOOKING PALE, REPORTS FEELING FUNNY AND SEEING SPOTS, SKIN CLAMMY. NS RUN AT 999/HOUR FOR 2-300 ML. 1603 BP 56/23, P 61, O2 SATS 100; 1606 BP 68/45; 1610 BP 103/46, PATIENT TALKING MORE, COLOR RETURNED TO LIPS AND SKIN, SHE STATES FEELING BETTER; 1612 BP 99/56 p70, O2SATS 100; 1620 BP 108/60, PATIENT REPORTS FEELING MUCH BETTER. BEFORE IRON WAS HUNG TODAY PATIENT REPORTED THAT SHE DID FEEL SOME NAUSEAU AFTER THE LAST DOSE. IRON INFUSION WAS RUN AT 220/HR ALONG WITH NS AT 50ML/HR. AFTER TODAYS INCIDENT PATIENT REPORTED THAT SHE HAD A SHORT INCIDENT AFTER THE FIRST INFUSION OF NAUSEAU, LIGHT HEADEDNESS, ALMOST FAINTING. SHE STATED THAT THIS RESOLVED QUICKLY AFTER EATING AND REST. SHE ALSO REPORTS HAVING HAD 2 IRON INFUSIONS AT ANOTHER TIME WITHOUT INCIDENT. BP AT 1620 101/54.
[2022-02-28] MEDS: LACTATED RINGERS 1,000 ML 1000 ML IV (16:01)
== END 2022-02-28 20:23 | disposition home or self-care (01) ==
LOC: ONC 14:10 → LABOR 16:32
PROVIDERS: PCP Registered Nurse Diabetes Educator; Referring Provider Obstetrics & Gynecology; Visit Provider Obstetrics & Gynecology
DX: O99.013 Anemia complicating pregnancy, third trimester (principal)
CPT/HCPCS: 59025; 96361; 96365; 96374; J1756; J2405

== ENCOUNTER → 2022-05-14 13:04 | Outpatient (CLI) | payer OTHER, MEDICAID, SELFPAY ==
[2022-05-14 13:32] LABS: Hematocrit 28.5 % (36-46); Mean Corpuscular HGB Conc 31.6 % (30-36); Mean Corpuscular Hemoglobin 23.8 PG (26-34); Mean Corpuscular Volume 75.5 fL (80-100); Platelet Count 431 X10^3/uL (150-400); Red Blood Cell Count 3.78 X10^6/uL (4.0-5.2); White Blood Cell Count 7.4 X10^3/uL (4.5-11.0)
[2022-05-14 14:02] LABS: HEMOLYSIS < 15 (0-50); Iron 22 ug/dL (37-170)
[2022-05-14 14:12] LABS: Transferrin 285 mg/dL (206-381)
[2022-05-14 14:31] LABS: TSH w/ Reflex to FT4 1.48 uIU/mL (0.47-4.68)
[2022-05-14 14:32] LABS: Ferritin 5 ng/mL (6-137)
[2022-05-15 14:54] LABS: Percent Iron Saturation 5 % (15-50); Total Iron Binding Capacity 427 ug/dL (265-497)
== END ==
PROVIDERS: PCP Registered Nurse Diabetes Educator; Referring Provider Registered Nurse Diabetes Educator; Visit Provider Registered Nurse Diabetes Educator
DX: D64.9 Anemia, unspecified (principal); F53.0 Postpartum depression
CPT/HCPCS: 36415; 82728; 83540; 83550; 84443; 85027

== ENCOUNTER → 2023-05-27 13:57 | Outpatient (CLI) | payer OTHER, MEDICAID, SELFPAY ==
[2023-05-27 15:45] LABS: HCG Quantitative /Beta subunit 31.4 mIU/mL
== END ==
PROVIDERS: PCP Registered Nurse Diabetes Educator; Referring Provider Obstetrics & Gynecology; Visit Provider Obstetrics & Gynecology
DX: O20.9 Hemorrhage in early pregnancy, unspecified (principal)
CPT/HCPCS: 36415; 84702

== ENCOUNTER → 2023-05-29 14:47 | Outpatient (CLI) | payer OTHER, MEDICAID, SELFPAY ==
[2023-05-29 18:41] LABS: HCG Quantitative /Beta subunit 12.6 mIU/mL
== END ==
PROVIDERS: PCP Registered Nurse Diabetes Educator; Referring Provider Obstetrics & Gynecology; Visit Provider Obstetrics & Gynecology
DX: O20.9 Hemorrhage in early pregnancy, unspecified (principal)
CPT/HCPCS: 36415; 84702

== ENCOUNTER 2023-10-23 13:03 | Emergency (ER) | payer OTHER, MEDICAID, SELFPAY ==
[2023-10-23 13:06] VITALS: BP 118/65; PULSE 129; RESP 18; TEMP 36.7; O2SAT 100; BMI 19.7
--- NOTE | 2023-10-23 13:11 | DI.RAD.S_ITS ---
PROCEDURE: XR FINGER RT MIN 2V INDICATIONS: pain, swelling TECHNIQUE: AP hand, 2 views of the 4th finger(s) acquired. COMPARISON: None. FINDINGS: Bones: No fractures or dislocations. No suspicious bony lesions. Soft tissues: No suspicious soft tissue calcifications. Soft tissue swelling, radial aspect distal portion of 4th finger with no radiopaque foreign body or soft tissue gas. IMPRESSION: Soft tissue swelling. No acute bony abnormality. Dictated by: Homero Andres M.D. on 10/23/2023 at 13:39 Approved by: Homero Andres M.D. on 10/23/2023 at 13:39
--- NOTE | 2023-10-23 16:02 | PC.NURSE ---
Patient came out of the room and asked for an update and something for her finger. She was offered 975mg of Tylenol for pain and she stated that she want take the due to her ulcerative colitis. she stated that she had it before and it made her ulcerative colitis flare up and made her bleeding worse. Provider aware.
--- NOTE | 2023-10-23 16:35 | ED.UPPEXIN ---
HPI - Extremity Injury (Upper) General Chief Complaint: Extremity Injury, Upper Stated Complaint: finger hand nail worse abcess warm throbbing Time Seen by Provider: 10/23/23 16:02 Source: patient Mode of arrival: Ambulatory History of Present Illness HPI narrative: 37-year-old female with redness and swelling around fingernail of right ring finger. No punctures, no nail procedures, no prosthetic nails, recently trimmed her nails, possibly nicked the skin. No fever. No redness to the rest of the finger, nor hand. No drainage. No blunt trauma recalled. Related Data Home Medications Medication Instructions Recorded Confirmed L.acid,shira-B.animal,bifid, See Rx Instructions .Route .COMPLEX 09/18/21 06/03/23 50 billion cell capsule,delayed rel ([employer] [place] Women Probiotic) prenat.vits,neha,[id number]-pwwrf 1 tab PO DAILY 09/18/21 06/03/23 Previous Rx's Medication Instructions Recorded dextroamphetamine-amphetamine ER 30 mg PO QAM #30 caps 09/03/23 30 mg 24hr capsule,extend release (Adderall XR) dextroamphetamine-amphetamine ER 30 mg PO QAM #30 caps 09/03/23 30 mg 24hr capsule,extend release (Adderall XR) dextroamphetamine-amphetamine ER 30 mg PO QAM #30 caps 09/03/23 30 mg 24hr capsule,extend release (Adderall XR) escitalopram oxalate 10 mg tablet 10 mg PO DAILY #90 tabs 09/03/23 (Lexapro) Allergies Allergy/AdvReac Type Severity Reaction Status Date / Time Latex, Natural Rubber Allergy Severe Anaphylaxis Verified 10/23/23 13:11 Review of Systems Review of Systems Narrative: per HPI Patient History Medical History ADHD, predominantly inattentive type Iron deficiency anemia 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 anxiety PCOS (polycystic ovarian syndrome) Anemia (~1994) Ulcerative colitis (~2008) Family History Mother Diabetes mellitus Hypertension Grandmother Brain aneurysm Father Cirrhosis Grandfather Kidney failure Grandfather Diabetes mellitus History of heart disease Social History marital status: unmarried,living together household members: significant other lives independently: Yes housing: house pets and animals: No education level: college (Some college) occupational status: unemployed current occupational exposures/hazards: No special chris needs: No travel history: over 6 months ago seatbelt use: always helmet use: Yes water heater temp set < 120 deg: No (Will check and ) working smoke detector in home: Yes fire extinguisher in home: Yes carbon monox detector in home: Yes firearms in home: No do you feel safe at home: Yes Smoking Status: Never smoker second hand exposure: Yes (s/o recently quit when pt found out she was ) alcohol intake: never substance use type: marijuana (previously used with UC flares, not since ) during the past year weight has: remained stable well-balanced diet: daily or most days daily servings fruits/ve-4 caffeine: No Type(s) of exercise: bicycling and weight lifting frequency: 3-4 times per week Smoking Status: Never smoker alcohol intake frequency: holidays/special occasions only Substance Use Type: does not use Exam Narrative Exam Narrative: GENERAL: Well-developed patient, in mild distress. HEAD: Atraumatic. Normocephalic. EYES: Pupils equal round and reactive. Extraocular motions intact. No scleral icterus. No injection or drainage. ENT: Nose without bleeding, purulent drainage. Throat without erythema, tonsillar hypertrophy or exudate. Airway patent. NECK: Trachea midline. Non tender CARDIOVASCULAR: Regular rate and rhythm without murmurs, gallops, or rubs. RESPIRATORY: Clear to auscultation. Breath sounds equal bilaterally. No wheezes, rales, or rhonchi. GASTROINTESTINAL: Abdomen soft, non-tender, nondistended. EXTREMITIES: Swelling redness to ring finger, some fluctuance medial aspect, consistent with paronychia, no expressible fluid. No subungual hematoma on exam. Nail kiswahili in place but no prosthetic fingernail(s) BACK: Nontender without deformity or crepitance. No flank tenderness. NEURO: AOx3. SKIN: No rash or erythema of visible areas Initial Vital Signs Initial Vital Signs: Vital Signs Temperature 98.0 F 10/23/23 13:06 Pulse Rate 129 H 10/23/23 13:06 Respiratory Rate 18 10/23/23 13:06 Blood Pressure 118/65 10/23/23 13:06 Pulse Oximetry 100 10/23/23 13:06 Oxygen Delivery Method Room Air 10/23/23 13:06 Procedures Abscess I/D I&D #1: Time of procedure: 17:12 Site: hand (right fourth finger paronychia) Local Anesthetic: lidocaine 1% Amount of anesthesia used (mL): 2 Technique: incised with #11 blade Amount of fluid expressed (mL): 1 Irrigation: No Packing used?: none Complications: pain Course Orders Ordered: Discontinued Medications Cephalexin HCl (Cephalexin 250 Mg Capsule) 500 mg PO NOW ONE Stop: 10/23/23 17:08 Last Admin: 10/23/23 17:17 Dose: 500 mg Documented By: SHELBI Tramadol HCl (Tramadol 50 Mg Tablet) 50 mg PO NOW ONE Stop: 10/23/23 17:09 Last Admin: 10/23/23 17:17 Dose: Not Given Documented By: SHELBI Tramadol HCl (Tramadol 50 Mg Prepack) 1 bottle MISC DIRECTED ONE Stop: 10/23/23 17:09 Last Admin: 10/23/23 17:17 Dose: 1 bottle Documented By: SHELBI Trimethoprim/Sulfamethoxazole (Trimeth/Sulfa 160/800 (Ds) Tablet) 1 tab PO NOW ONE Stop: 10/23/23 17:08 Last Admin: 10/23/23 17:17 Dose: 1 tab Documented By: SHELBI Vital Signs Vital signs: Vital Signs - 8 hr 10/23/23 13:06 Temperature 98.0 F Pulse Rate 129 H Respiratory Rate 18 Blood Pressure 118/65 Pulse Oximetry 100 Oxygen Delivery Method Room Air MDM - Extremity Injury (Upper) MDM Narrative Medical decision making narrative: Right ring finger paronychia, verbal consent for incision and drainage, local digital hemiblock, pus expressed, send for wound culture. PO Keflex and PO Bactrim doses given, prescriptioons for further antibiotics sent to her pharmacy. Wound check advised Friday, return precautions discussed Discharge Plan Departure Patient Disposition: Home Clinical Impression: Paronychia of finger Activity Restrictions/Additional Instructions: Right ring finger swelling and redness, paronychia belkis ungual abscess suspected clinically, digital block, incision, expression of pus, wound culture sent. First doses antibiotics Keflex and oral Bactrim given, pain medication tramadol with home pack for discharge. Further antibiotics electronically sent to your pharmacy. Wound check suggested Friday with your regular doctor. Return to this/nearest emergency department for any change worsening symptoms or any concerns prior Prescriptions: No Action prenat.vits,neha,jle-[id number]-mxssf Tablet 1 tab PO DAILY [employer] [place] [facility] Probiotic 50 billion cell capsule,delayed release(DR/EC) See Rx Instructions .ROUTE .COMPLEX Rx Instructions: Take as prescribed. dextroamphetamine-amphetamine [Adderall XR] 30 mg capsule,extended release 24hr 30 mg PO QAM Qty: 30 0RF dextroamphetamine-amphetamine [Adderall XR] 30 mg capsule,extended release 24hr 30 mg PO QAM Qty: 30 0RF dextroamphetamine-amphetamine [Adderall XR] 30 mg capsule,extended release 24hr 30 mg PO QAM Qty: 30 0RF escitalopram oxalate [Lexapro] 10 mg tablet 10 mg PO DAILY Qty: 90 1RF Referrals: Mynor Bolaños ARNP [Primary Care Provider] - Stand Alone Forms: Patient Portal/API
[2023-10-23] MEDS: TRIMETH/SULFA 160/800 (DS) TABLET 1 TAB PO (17:17)
[2023-10-23] MEDS: cephALEXin 250 MG CAPSULE 500 MG PO (17:17)
[2023-10-23] MEDS: TRAMADOL 50 MG PREPACK 1 BOTTLE MISC (17:17)
[2023-10-23 17:23] VITALS: BP 114/64; PULSE 98; RESP 17; O2SAT 100
== END 2023-10-23 17:12 | disposition home or self-care (01) ==
PROVIDERS: Emergency Provider Emergency Medicine; PCP Registered Nurse Diabetes Educator
DX: L03.011 Cellulitis of right finger (principal)
CPT/HCPCS: 10140; 73140; 87070; 87075; 87077; 87147; 87205; 99283

== ENCOUNTER → 2025-02-09 14:50 | Outpatient (CLI) | payer OTHER, SELFPAY ==
[2025-02-09 20:12] LABS: Urine N gonorrhoeae NOT DETECTED
[2025-02-09 20:16] LABS: Urine Chlamydia NOT DETECTED
== END ==
PROVIDERS: PCP Registered Nurse Diabetes Educator; Visit Provider Obstetrics & Gynecology
DX: Z11.3 Encounter for screening for infections with a predominantly sexual mode of transmission (principal)
CPT/HCPCS: 87491; 87591

== ENCOUNTER → 2025-02-23 16:52 | Outpatient (CLI) | payer OTHER, SELFPAY ==
[2025-02-23 18:28] LABS: Natera Collection Specimen Collected
== END ==
PROVIDERS: PCP Registered Nurse Diabetes Educator; Referring Provider Obstetrics & Gynecology; Visit Provider Obstetrics & Gynecology
DX: O09.511 Supervision of elderly primigravida, first trimester (principal); Z36.0 Encounter for antenatal screening for chromosomal anomalies
CPT/HCPCS: 36415

== ENCOUNTER → 2025-03-03 16:30 | Outpatient (CLI) | payer OTHER, SELFPAY ==
[2025-03-03 17:21] LABS: HEMOLYSIS < 15 (0-50); Iron 23 ug/dL (37-170)
[2025-03-03 17:35] LABS: Percent Iron Saturation 5 % (15-50); Total Iron Binding Capacity 444 ug/dL (265-497); Transferrin 379 mg/dL (206-381)
[2025-03-03 17:54] LABS: Add Manual Diff / Slide Review NO; Hematocrit 25.5 % (36-46); Hemoglobin 7.4 g/dL (12.0-16.0); Lymphocytes Absolute Auto 2400 /uL (1100-4500); Mean Corpuscular HGB Conc 28.9 % (30-36); Mean Corpuscular Hemoglobin 16.0 PG (26-34); Mean Corpuscular Volume 55.3 fL (80-100); Platelet Count 620 X10^3/uL (150-400)
[2025-03-03 18:00] LABS: Ferritin 4 ng/mL (6-137)
[2025-03-03 18:04] LABS: Hepatitis B Surface Antigen NEGATIVE s/c (NEGATIVE)
[2025-03-03 18:19] LABS: HIV 1 & 2 Ab/Ag 4th Gen Combo NEGATIVE (NEGATIVE); Hep C Virus Ab w/Reflex Quant NEGATIVE s/c (NEGATIVE)
[2025-03-03 18:35] LABS: Anisocytosis 2+; Hemoglobin A1C% w Est Avg Glu 4.5 % (4.0-6.0); Hypochromasia 2+; Microcytosis 1+; Target Cells 1+
[2025-03-03 18:57] LABS: Urine N gonorrhoeae NOT DETECTED
[2025-03-03 19:24] LABS: Urine Chlamydia NOT DETECTED
== END ==
PROVIDERS: PCP Registered Nurse Diabetes Educator; Referring Provider Obstetrics & Gynecology; Visit Provider Obstetrics & Gynecology
DX: O09.899 Supervision of other high risk pregnancies, unspecified trimester (principal); D50.8 Other iron deficiency anemias
CPT/HCPCS: 80055; 82728; 83036; 83540; 83550; 86787; 86803; 86850; 86900; 86901; 87086; 87389; 87491; 87591

== ENCOUNTER 2025-03-10 15:51 | Emergency (ER) | payer OTHER, SELFPAY ==
[2025-03-10] VITALS (24 sets, daily range): BP systolic 93–120; BP diastolic 52–71; PULSE 74–91; RESP 13–34; TEMP 36.9–37.1; O2SAT 84–100; BMI 20.5
[2025-03-10 16:48] LABS: Add Manual Diff / Slide Review NO; Hematocrit 24.5 % (36-46); Hemoglobin 7.2 g/dL (12.0-16.0); Lymphocytes Absolute Auto 2200 /uL (1100-4500); Mean Corpuscular HGB Conc 29.3 % (30-36); Mean Corpuscular Hemoglobin 16.0 PG (26-34); Mean Corpuscular Volume 54.7 fL (80-100); Platelet Count 580 X10^3/uL (150-400)
[2025-03-10 17:10] LABS: Alanine Aminotransferase 10 IU/L (<35); Albumin 3.9 g/dL (3.5-5.0); Albumin Globulin Ratio 1.0 (1.0-2.8); Alkaline Phosphatase 71 U/L (38-126); Blood Urea Nitrogen 7 mg/dL (7-17); Calcium 9.2 mg/dL (8.4-10.2); Carbon Dioxide 23 mmol/L (22-32); Chloride 105 mmol/L (98-107); Estimated Glomerular Filt Rate > 60 mL/min (>60); Globulin 4.1 g/dL (1.7-4.1); Glucose 88 mg/dL (70-99); HEMOLYSIS < 15 (0-50); Potassium 3.5 mmol/L (3.4-5.1); Sodium 137 mmol/L (137-145); Total Protein 8.0 g/dL (6.3-8.2)
[2025-03-10 17:27] LABS: HCG Quantitative /Beta subunit 12758 mIU/mL
[2025-03-10 17:40] LABS: Hypochromasia 1+; Microcytosis 3+; Target Cells 2+
[2025-03-10 17:44] LABS: Ovalocytes 1+
[2025-03-10 17:45] LABS: Schistocytes 1+
--- NOTE | 2025-03-10 19:08 | ED.RECABL ---
HPI - Recheck/Abnormal Lab/Rx General Chief Complaint: Recheck/Abnormal Lab/Rx Stated Complaint: Sent from phys; blood transfusion due to miscarri Time Seen by Provider: 03/10/25 16:57 History of Present Illness HPI narrative: Patient is a 39-year-old female presenting from home sent by her physician for possible a transfusion, she states that she also has a history of Crohn's disease therefore she has chronic anemia, she states that she is going through the miscarriage naturally, states that she called her OBGYN and told her to come into the ED for possible blood transfusion, she states that she is having typical history of anemia, states that she feels weak lightheaded whenever she exerts itself but denies any other symptoms at this time. Not on any blood thinners does state that she is having some mild vaginal bleeding Related Data Home Medications ?Medication ?Instructions ?Recorded ?Confirmed L.acid,shira-B.animal,bifid,infant See Rx Instructions .Route .COMPLEX 09/18/21 01/12/25 50 billion cell capsule,delayed rel (Fortify [place] Women Probiotic) Held on 02/24/25. Instructions: omega 7-swd-evq-fish oil 1,000 mg 3 cap PO DAILY 02/01/25 02/01/25 (120 mg-180 mg) capsule (Fish Oil) Held on 02/24/25. Instructions: vitamin-ferrous sulfate tab PO 02/01/25 02/01/25 27 mg iron-folic acid 0.8 mg tablet Previous Rx's ?Medication ?Instructions ?Recorded valacyclovir 1 gram tablet See Rx Instructions .Route 05/03/24 (Valtrex) .COMPLEX #20 tabs Held on 02/24/25. Instructions: escitalopram oxalate 10 mg tablet 10 mg PO DAILY #90 tabs 10/12/24 (Lexapro) Held on 02/24/25. Instructions: dextroamphetamine-amphetamine 10 10 mg PO DAILY #30 tabs 01/14/25 mg tablet (Adderall) Held on 02/24/25. Instructions: dextroamphetamine-amphetamine 10 10 mg PO DAILY #30 tabs 01/14/25 mg tablet (Adderall) Held on 02/24/25. Instructions: dextroamphetamine-amphetamine 10 10 mg PO DAILY #30 tabs 01/14/25 mg tablet (Adderall) Held on 02/24/25. Instructions: dextroamphetamine-amphetamine ER 25 mg PO QAM #30 caps 01/14/25 25 mg 24hr capsule,extend release (Adderall XR) Held on 02/24/25. Instructions: dextroamphetamine-amphetamine ER 25 mg PO QAM #30 caps 01/14/25 25 mg 24hr capsule,extend release (Adderall XR) Held on 02/24/25. Instructions: dextroamphetamine-amphetamine ER 25 mg PO QAM #30 caps 01/14/25 25 mg 24hr capsule,extend release (Adderall XR) Held on 02/24/25. Instructions: ondansetron 4 mg disintegrating 4 mg PO Q8H PRN nausea and 02/20/25 tablet vomiting #20 tabs Allergies Allergy/AdvReac Type Severity Reaction Status Date / Time Latex, Natural Rubber Allergy Severe Anaphylaxis Verified 02/01/25 15:36 Review of Systems Review of Systems Narrative: General: Generalized fatigue, low blood Denies fever, chills, weight loss HEENT: Denies headache, eye drainage, eye irritation, head trauma, sore throat, voice change Cardiovascular: Denies any chest pain, palpitations, tachycardia Respiratory: Denies any shortness of breath, cough, wheeze, stridor GI/: Positive vaginal bleeding Denies any abdominal pain, nausea, vomiting, diarrhea, bright red blood per rectum, melanotic stools, urinary frequency, urinary retention, dysuria, hematuria MSK: Denies any joint pain, muscle pains, swelling Skin: Denies any rashes, lesions, discoloration Neuro: Denies any headache, lightheadedness, dizziness, fainting, weakness Psych: Denies SI/HI Patient History Medical History (Updated 03/10/25 @ 19:23 by Rod Steele DO) examination following delivery Anemia (~1994) Surgical History (Updated 02/01/25 @ 15:49 by Lorelei Young RN) Previous section Family History (Updated 02/01/25 @ 15:58 by Lorelei Young, JONH) Mother Diabetes mellitus Hypertension Grandmother Brain aneurysm Father Cirrhosis Alcoholism Grandfather Kidney failure Grandfather Diabetes mellitus History of heart disease Social History marital status: number of children: 1 household members: spouse, family and children lives independently: Yes caregiver/support person: Yes housing: house pets and animals: Yes (small dog) education level: college occupational status: employed current occupational exposures/hazards: No special chris needs: No travel history: over 6 months ago seatbelt use: always helmet use: Yes water heater temp set < 120 deg: No (Will check and ) working smoke detector in home: Yes fire extinguisher in home: Yes carbon monox detector in home: Yes firearms in home: No do you feel safe at home: Yes (unable to ask about safety in marriage as present on speaker phone) Smoking Status: Never smoker second hand exposure: No alcohol intake: never substance use type: marijuana during the past year weight has: remained stable well-balanced diet: daily or most days daily servings fruits/ve-4 caffeine: No Type(s) of exercise: walking frequency: 3-4 times per week Smoking Status: Never smoker alcohol intake frequency: holidays/special occasions only Exam Narrative Exam Narrative: General: Cooperative, well-developed, not in acute distress HEENT: Normocephalic, atraumatic, PERRLA, normal sclera, eyelids normal Neck: Active full range of motion, atraumatic Chest: Normal to inspection, negative crepitus, no overlying erythema ecchymosis Respiratory: Normal respiratory effort, not in acute respiratory distress, clear to auscultation bilaterally negative cough, wheeze, tachypnea, rhonchi, rales Cardiology: Regular rate rhythm negative gallop, murmur, rubs GI/: No tenderness to palpation, soft, non rigid, normal to inspection, exam deferred MSK: Full active range of motion in all 4 extremities, atraumatic, no tenderness to palpation of any bony prominences Skin: No rashes or lesions noted Neuro: Alert awake oriented x3, moves all 4 extremities spontaneously, cranial nerves intact, able to answer all questions appropriately follows commands appropriately Psych: Cooperative, negative suicidal or homicidal ideations Initial Vital Signs Initial Vital Signs: Vital Signs Temperature 98.7 F 03/10/25 16:17 Pulse Rate 82 03/10/25 16:17 Respiratory Rate 16 03/10/25 16:17 Blood Pressure 110/54 L 03/10/25 16:17 Pulse Oximetry 100 03/10/25 16:17 Oxygen Delivery Method Room Air 03/10/25 16:17 Course Orders Ordered: ED Orders 03/10/25 16:20 Beta HCG, Quant [HCG Quantitative /Beta subunit] Stat CBC Auto Diff [Complete Blood Count AUTO DIFF] Stat CMP [Comprehensive Metabolic Panel] Stat Packed Cells Stat Pathologist Review (for CBC) Stat Type and Screen Stat Vital Signs Vital signs: Vital Signs - 8 hr 03/10/25 16:17 03/10/25 19:21 03/10/25 19:23 Temperature 98.7 F Pulse Rate 82 75 Respiratory Rate 16 13 Blood Pressure 110/54 L 111/59 L Pulse Oximetry 100 99 Oxygen Delivery Method Room Air 03/10/25 19:23 03/10/25 19:30 03/10/25 19:30 Temperature Pulse Rate 78 82 Respiratory Rate 15 17 Blood Pressure 110/66 Pulse Oximetry 100 99 Oxygen Delivery Method 03/10/25 20:00 03/10/25 20:00 03/10/25 20:00 Temperature 98.8 F Pulse Rate 91 H 76 Respiratory Rate 20 20 Blood Pressure 110/66 111/64 Pulse Oximetry 99 Oxygen Delivery Method 03/10/25 20:05 03/10/25 20:05 03/10/25 20:11 Temperature Pulse Rate 77 Respiratory Rate 17 Blood Pressure 93/52 L 120/54 L Pulse Oximetry 99 Oxygen Delivery Method 03/10/25 20:11 03/10/25 20:15 03/10/25 20:15 Temperature Pulse Rate 79 91 H Respiratory Rate 22 22 Blood Pressure 116/56 L Pulse Oximetry 91 97 Oxygen Delivery Method 03/10/25 20:20 03/10/25 20:20 03/10/25 20:25 Temperature Pulse Rate 78 79 Respiratory Rate 26 H 13 Blood Pressure 108/61 Pulse Oximetry 96 99 Oxygen Delivery Method 03/10/25 20:25 03/10/25 20:30 03/10/25 20:30 Temperature Pulse Rate 79 Respiratory Rate 25 H Blood Pressure 109/71 110/61 Pulse Oximetry 99 Oxygen Delivery Method 03/10/25 20:35 03/10/25 20:35 03/10/25 20:37 Temperature Pulse Rate 74 78 Respiratory Rate 18 26 H Blood Pressure 104/59 L Pulse Oximetry 99 99 Oxygen Delivery Method 03/10/25 20:40 03/10/25 20:45 03/10/25 20:45 Temperature Pulse Rate 84 Respiratory Rate 34 H Blood Pressure 112/56 L 99/55 L Pulse Oximetry 84 L Oxygen Delivery Method 03/10/25 20:50 03/10/25 20:50 03/10/25 20:55 Temperature Pulse Rate 83 84 Respiratory Rate 22 24 Blood Pressure 104/59 L Pulse Oximetry 99 98 Oxygen Delivery Method 03/10/25 20:55 03/10/25 21:00 03/10/25 21:00 Temperature Pulse Rate 84 Respiratory Rate 19 Blood Pressure 103/62 110/67 Pulse Oximetry 98 Oxygen Delivery Method 03/10/25 21:05 03/10/25 21:05 03/10/25 21:10 Temperature Pulse Rate 84 91 H Respiratory Rate 21 23 Blood Pressure 114/69 Pulse Oximetry 99 97 Oxygen Delivery Method 03/10/25 21:10 03/10/25 21:15 03/10/25 21:15 Temperature Pulse Rate 90 Respiratory Rate 24 Blood Pressure 113/58 L 117/63 Pulse Oximetry 99 Oxygen Delivery Method 03/10/25 21:20 03/10/25 21:20 03/10/25 21:25 Temperature Pulse Rate 90 Respiratory Rate 19 Blood Pressure 114/64 108/61 Pulse Oximetry 98 Oxygen Delivery Method 03/10/25 21:25 03/10/25 21:25 Temperature 98.4 F Pulse Rate 87 Respiratory Rate 20 Blood Pressure Pulse Oximetry 98 Oxygen Delivery Method MDM - Recheck/Abnormal Lab/Rx Lab Data 03/10/25 16:20 03/10/25 16:20 Labs: Lab Results 03/10/25 Range/Units 16:20 WBC 6.9 (4.5-11.0) X10^3/uL RBC 4.49 (4.0-5.2) X10^6/uL Hgb 7.2 L (12.0-16.0) g/dL Hct 24.5 L (36-46) % MCV 54.7 L (80-100) fL MCH 16.0 L (26-34) PG MCHC 29.3 L (30-36) % RDW 21.4 H (11.6-14.8) % Plt Count 580 H (150-400) X10^3/uL Neut % (Auto) 49.9 L (50-75) % Lymph % (Auto) 31.7 (25-40) % [place] % (Auto) 10.3 (3-14) % Eos % (Auto) 7.5 H (2-4) % Baso % (Auto) 0.6 (0-2) % Neut # (Auto) 3400 (4219-6956) /uL Lymph # (Auto) 2200 (0225-5596) /uL [place] # (Auto) 700 (0-900) /uL Eos # (Auto) 500 H (0-450) /uL Baso # (Auto) 0 (0-100) /uL RBC Morphology See below Hypochromasia 1+ H Microcytosis 3+ H D Target Cells 2+ H Ovalocytes 1+ H Schistocytes 1+ H Sodium 137 (137-145) mmol/L Potassium 3.5 (3.4-5.1) mmol/L Chloride 105 (98-107) mmol/L Carbon Dioxide 23 (22-32) mmol/L BUN 7 (7-17) mg/dL Creatinine 0.40 L (0.52-1.04) mg/dL Estimated GFR > 60 (>60) mL/min BUN/Creatinine Ratio 17.5 (6-22) Glucose 88 (70-99) mg/dL Calcium 9.2 (8.4-10.2) mg/dL Total Bilirubin 0.6 (0.2-1.3) mg/dL AST 24 (14-36) IU/L ALT 10 (<35) IU/L Alkaline Phosphatase 71 (38-126) U/L Total Protein 8.0 (6.3-8.2) g/dL Albumin 3.9 (3.5-5.0) g/dL Globulin 4.1 (1.7-4.1) g/dL Albumin/Globulin Ratio 1.0 (1.0-2.8) HCG, Quant 18351 mIU/mL Blood Type O Positive Antibody Screen Negative Crossmatch See Detail MDM Narrative Medical decision making narrative: Patient is a 39-year-old female with a history of Crohn's, anemia secondary to this, states that she presents for blood transfusion, she states that she is currently undergoing a miscarriage followed by her OBGYN, she states that she started having generalized fatigue, lightheadedness with exertion, but no actual shortness breath chest pain, she states that she is having some mild vaginal bleeding she called her OBGYN and states that they tried to get her into clinic/transfusion office but it was too late therefore instructed come into the ED for blood transfusion. Patient hemoglobin 7.2, the remainder of her lab work unremarkable, consent was obtained for blood transfusion she received 1 unit PRBC and instructed to follow up with her primary care and OBGYN in outpatient setting, she verbalized strict return precautions and agrees to being discharged home with outpatient follow up Discharge Plan Departure Patient Disposition: Home Clinical Impression: Anemia Instructions: DI for Blood Transfusion Activity Restrictions/Additional Instructions: Please follow up with your OBGYN and your primary care doctor Please read the discharge instructions sheet carefully and bring all papers to all doctor follow-up visits, as it may contain information that your doctor may want to see. Disease processes change and evolve, if your symptoms worsen or if you develop any new symptoms that are concerning to you please return for evaluation. Your evaluation today does not show any evidence of any life-threatening/serious illnesses requiring admission to the hospital or surgery. Please follow-up with your doctor for re-evaluation in approximately 1 day. Seek immediate medical attention for any worrisome symptoms. *If you do not have a primary care provider please contact the [facility] Resource line at [phone]. They will ask some questions about your medical history and help get you set up with a doctor in the community. Prescriptions: No Action escitalopram oxalate [Lexapro] 10 mg tablet 10 mg PO DAILY Qty: 90 1RF Fortify [place] Women Probiotic 50 billion cell capsule,delayed release(DR/EC) See Rx Instructions .ROUTE .COMPLEX Rx Instructions: Take as prescribed. ondansetron 4 mg tablet,disintegrating 4 mg PO Q8H PRN (Reason: nausea and vomiting) Qty: 20 1RF valacyclovir [Valtrex] 1 gram tablet See Rx Instructions .Route .COMPLEX Qty: 20 5RF Rx Instructions: Take 2 tabs at onset of cold sores then repeat in 12 hours. Bottle contains enough tabs for multiple outbreaks dextroamphetamine-amphetamine [Adderall XR] 25 mg capsule,extended release 24hr 25 mg PO QAM Qty: 30 0RF Rx Instructions: Take prior to 11 AM dextroamphetamine-amphetamine [Adderall XR] 25 mg capsule,extended release 24hr 25 mg PO QAM Qty: 30 0RF Rx Instructions: Take prior to 11 AM dextroamphetamine-amphetamine [Adderall XR] 25 mg capsule,extended release 24hr 25 mg PO QAM Qty: 30 0RF Rx Instructions: Take prior to 11 AM dextroamphetamine-amphetamine [Adderall] 10 mg tablet 10 mg PO DAILY Qty: 30 0RF Rx Instructions: at 7 AM dextroamphetamine-amphetamine [Adderall] 10 mg tablet 10 mg PO DAILY Qty: 30 0RF Rx Instructions: at 7 AM dextroamphetamine-amphetamine [Adderall] 10 mg tablet 10 mg PO DAILY Qty: 30 0RF Rx Instructions: at 7 AM vit-ferrous sulfat-FA 27 mg iron- 0.8 mg tablet PO omega 2-dmt-lgb-fish oil [Fish Oil] 1,000 (120-180) mg capsule 3 cap PO DAILY Referrals: Mynor Bolaños ARNP [Primary Care Provider, Medical] Stand Alone Forms: Patient Portal/API
== END 2025-03-10 22:05 | disposition home or self-care (01) ==
PROVIDERS: Emergency Medicine; Emergency Provider Student in an Organized Health Care Education/Training Program; PCP Registered Nurse Diabetes Educator
DX: D64.9 Anemia, unspecified (principal); O03.9 Complete or unspecified spontaneous abortion without complication
CPT/HCPCS: 36415; 36430; 80053; 84702; 85025; 86850; 86900; 86901; 99284; P9016

== ENCOUNTER 2025-03-15 08:14 | Observation (INO) | payer OTHER, SELFPAY ==
[2025-03-15] VITALS (24 sets, daily range): BP systolic 90–118; BP diastolic 53–71; PULSE 66–85; RESP 14–18; TEMP 36.6–37.4; O2SAT 99–100; BMI 20.3
--- NOTE | 2025-03-15 08:32 | ED.ABDPAIN ---
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 Other than what is stated 14 point review system is negative. Related Data Home Medications ?Medication ?Instructions ?Recorded ?Confirmed L.acid,shira-B.animal,bifid, See Rx Instructions .Route .COMPLEX 09/18/21 01/12/25 50 billion cell capsule,delayed rel (Fortify [place] Women Probiotic) Held on 02/24/25. Instructions: omega 1-uxj-hlv-fish oil 1,000 mg 3 cap PO DAILY 02/01/25 02/01/25 (120 mg-180 mg) capsule (Fish Oil) Held on 02/24/25. Instructions: vitamin-ferrous sulfate tab PO 02/01/25 02/01/25 27 mg iron-folic acid 0.8 mg tablet Previous Rx's ?Medication ?Instructions ?Recorded valacyclovir 1 gram tablet See Rx Instructions .Route 05/03/24 (Valtrex) .COMPLEX #20 tabs Held on 02/24/25. Instructions: escitalopram oxalate 10 mg tablet 10 mg PO DAILY #90 tabs 10/12/24 (Lexapro) Held on 02/24/25. Instructions: dextroamphetamine-amphetamine 10 10 mg PO DAILY #30 tabs 01/14/25 mg tablet (Adderall) Held on 02/24/25. Instructions: dextroamphetamine-amphetamine 10 10 mg PO DAILY #30 tabs 01/14/25 mg tablet (Adderall) Held on 02/24/25. Instructions: dextroamphetamine-amphetamine 10 10 mg PO DAILY #30 tabs 01/14/25 mg tablet (Adderall) Held on 02/24/25. Instructions: dextroamphetamine-amphetamine ER 25 mg PO QAM #30 caps 01/14/25 25 mg 24hr capsule,extend release (Adderall XR) Held on 02/24/25. Instructions: dextroamphetamine-amphetamine ER 25 mg PO QAM #30 caps 01/14/25 25 mg 24hr capsule,extend release (Adderall XR) Held on 02/24/25. Instructions: dextroamphetamine-amphetamine ER 25 mg PO QAM #30 caps 01/14/25 25 mg 24hr capsule,extend release (Adderall XR) Held on 02/24/25. Instructions: ondansetron 4 mg disintegrating 4 mg PO Q8H PRN nausea and 02/20/25 tablet vomiting #20 tabs Allergies Allergy/AdvReac Type Severity Reaction Status Date / Time Latex, Natural Rubber Allergy Severe Anaphylaxis Verified 02/01/25 15:36 Review of Systems Review of Systems ROS Unobtainable: All systems reviewed & are unremarkable except as noted in HPI and below Patient History Medical History (Updated 03/15/25 @ 10:33 by Fernando Ibarra DO) examination following delivery Anemia (~1994) Surgical History (Updated 02/01/25 @ 15:49 by Lorelei Young RN) Previous section Family History (Updated 02/01/25 @ 15:58 by Lorelei Young RN) Mother Diabetes mellitus Hypertension Grandmother Brain aneurysm Father Cirrhosis Alcoholism Grandfather Kidney failure Grandfather Diabetes mellitus History of heart disease Social History marital status: number of children: 1 household members: spouse, family and children lives independently: Yes caregiver/support person: Yes housing: house pets and animals: Yes (small dog) education level: college occupational status: employed current occupational exposures/hazards: No special chris needs: No travel history: over 6 months ago seatbelt use: always helmet use: Yes water heater temp set < 120 deg: No (Will check and ) working smoke detector in home: Yes fire extinguisher in home: Yes carbon monox detector in home: Yes firearms in home: No do you feel safe at home: Yes (unable to ask about safety in marriage as present on speaker phone) second hand exposure: No alcohol intake: never substance use type: marijuana during the past year weight has: remained stable well-balanced diet: daily or most days daily servings fruits/ve-4 caffeine: No Type(s) of exercise: walking frequency: 3-4 times per week alcohol intake frequency: holidays/special occasions only Exam Narrative Exam Narrative: GENERAL: [39] year old patient appears stated age. Well-developed patient, in mild distress. HEAD: Atraumatic. Normocephalic. EYES: Pupils equal round and reactive. Extraocular motions intact. No scleral icterus. No injection or drainage. GASTROINTESTINAL: Abdomen soft, non-tender, nondistended. EXTREMITIES: No edema or joint tenderness. BACK: Nontender without deformity or crepitance. No flank tenderness. NEURO: AOx3. SKIN: No rash or erythema of visible areas Initial Vital Signs Initial Vital Signs: Vital Signs Pulse Rate 70 03/15/25 08:28 Pulse Oximetry 100 03/15/25 08:28 Course Orders Ordered: ED Orders 03/15/25 08:41 ABO RH Type Stat Beta HCG, Quant [HCG Quantitative /Beta subunit] Stat CBC Auto Diff [Complete Blood Count AUTO DIFF] Stat CMP [Comprehensive Metabolic Panel] Stat PT [Prothrombin Time INR] Stat 03/15/25 08:52 US pelvic complete Stat Lactated Ringer's (Lactated Ringers) 1,000 mls @ 1,000 mls/hr IV BOLUS ONE Stop: 03/15/25 10:50 Last Admin: 03/15/25 09:52 Dose: 1,000 mls/hr Documented By: MARILYN Discontinued Medications Lactated Ringer's (Lactated Ringers) 1,000 mls @ 1,000 mls/hr IV BOLUS ONE Stop: 03/15/25 09:31 Last Infusion: 03/15/25 09:35 Dose: Infused Documented By: Admin: 03/15/25 08:42 Dose: 1,000 mls/hr Documented By: MARILYN Vital Signs Vital signs: Vital Signs - 8 hr 03/15/25 08:28 03/15/25 08:30 03/15/25 08:34 Temperature 98 F Pulse Rate 70 73 73 Respiratory Rate 17 Blood Pressure 104/56 L Pulse Oximetry 100 100 100 Oxygen Delivery Method Room Air 03/15/25 09:00 03/15/25 09:30 03/15/25 09:31 Temperature Pulse Rate 84 85 81 Respiratory Rate Blood Pressure Pulse Oximetry 100 100 100 Oxygen Delivery Method 03/15/25 09:31 Temperature Pulse Rate Respiratory Rate Blood Pressure 90/59 L Pulse Oximetry Oxygen Delivery Method MDM - Abdominal Pain Lab Data 03/15/25 08:41 03/15/25 08:41 Labs: Lab Results 03/15/25 Range/Units 08:41 WBC 8.2 (4.5-11.0) X10^3/uL RBC 4.57 (4.0-5.2) X10^6/uL Hgb 7.9 L (12.0-16.0) g/dL Hct 26.4 L (36-46) % MCV 57.7 L D (80-100) fL MCH 17.3 L (26-34) PG MCHC 29.9 L (30-36) % RDW 23.8 H (11.6-14.8) % Plt Count 515 H (150-400) X10^3/uL Neut % (Auto) 47.7 L (50-75) % Lymph % (Auto) 43.7 H (25-40) % [place] % (Auto) 5.0 (3-14) % Eos % (Auto) 3.2 (2-4) % Baso % (Auto) 0.4 (0-2) % Neut # (Auto) 3900 (9025-6354) /uL Lymph # (Auto) 3600 (8772-6413) /uL [place] # (Auto) 400 (0-900) /uL Eos # (Auto) 300 (0-450) /uL Baso # (Auto) 0 (0-100) /uL RBC Morphology Not Reportable Poikilocytosis 1+ H Anisocytosis 1+ H PT 12.6 H (9.4-12.5) SECONDS INR 1.1 (0.9-1.3) Sodium 136 L (137-145) mmol/L Potassium 3.5 (3.4-5.1) mmol/L Chloride 104 (98-107) mmol/L Carbon Dioxide 20 L (22-32) mmol/L BUN 5 L (7-17) mg/dL Creatinine 0.50 L (0.52-1.04) mg/dL Estimated GFR > 60 (>60) mL/min BUN/Creatinine Ratio 10.0 (6-22) Glucose 117 H (70-99) mg/dL Calcium 9.0 (8.4-10.2) mg/dL Total Bilirubin 0.7 (0.2-1.3) mg/dL AST 20 (14-36) IU/L ALT 12 (<35) IU/L Alkaline Phosphatase 66 (38-126) U/L Total Protein 7.3 (6.3-8.2) g/dL Albumin 3.6 (3.5-5.0) g/dL Globulin 3.7 (1.7-4.1) g/dL Albumin/Globulin Ratio 1.0 (1.0-2.8) HCG, Quant 3602.2 mIU/mL Blood Type O Positive Imaging Data US - ARTISTIC ASSOCIATE: Radiologist's Impression: [address] [address] Ultrasound Report Signed Patient: Angi Muniz MR#: [id number] : 1985 Acct:[id number] Age/Sex: 39 / F Date of Service: 03/15/25 Loc: ED Accession Number: [id number] Procedure: US pelvic complete Ordering Provider: Fernando Ibarra D.O. PROCEDURE: US PELVIC COMPLETE INDICATIONS: SAB IN PROGRESS TECHNIQUE: Real-time scanning was performed of the pelvic organs, with image documentation. Additional endovaginal scanning was necessary due to incomplete visualization of the adnexal and endometrial structures by transabdominal scanning. COMPARISON: [facility], US, US OB <= 14 WEEKS FETUS, 02/09/2025, 15:14. FINDINGS: Uterus: Uterus is anteverted and normal in size at 7.9 x 6.4 x 7.5 cm. The myometrium is homogeneous. The endometrium measures 40 mm combined thickness and appears heterogeneous. No definite internal vascularity is seen. Ovaries: Right ovary is not visualized. The left ovary measures 3.0 x 2.6 x 1.6 cm, with a calculated ovarian volume of 6.5 cc. The left ovary as a normal sonographic appearance. No adnexal masses are seen. Other: No pathologic free abdominal or pelvic fluid. IMPRESSION: No intrauterine is seen. Heterogeneous thickened endometrium without definite internal vascularity, possibly related to echogenic blood products although retained products of conception are not entirely excluded and clinical follow-up is recommended with follow-up ultrasound as needed. MDM Narrative Medical decision making narrative: All lab work, vital signs, nurse triage note, medication list, previous ER visits, and all imaging studies reviewed. Pelvic ultrasound showed no intrauterine is seen. Heterogeneous thickened endometrium without definite internal vascularity possibly related echogenic blood products although retained products of conceptions are not entirely excluded and clinical follow up is recommended with follow up ultrasound as needed. WBC 8.2 hemoglobin 7.9 platelets 515 INR 1.1 sodium 136 potassium 3.5 chloride 104 CO2 20 BUN 5 creatinine 0.5 glucose 117 LFTs normal beta quant 3602.2. Case discussed with Dr. Jones who will be taking patient to the OR at this time. Discharge Plan Departure Patient Disposition: Admitted as Observation Clinical Impression: Incomplete miscarriage
[2025-03-15] MEDS: LACTATED RINGERS 1,000 ML 1000 ML IV ×2 (08:42→09:52)
--- NOTE | 2025-03-15 08:52 | DI.US.S_ITS ---
PROCEDURE: US PELVIC COMPLETE INDICATIONS: SAB IN PROGRESS TECHNIQUE: Real-time scanning was performed of the pelvic organs, with image documentation. Additional endovaginal scanning was necessary due to incomplete visualization of the adnexal and endometrial structures by transabdominal scanning. COMPARISON: [facility], US, US OB <= 14 WEEKS FETUS, 02/09/2025, 15:14. FINDINGS: Uterus: Uterus is anteverted and normal in size at 7.9 x 6.4 x 7.5 cm. The myometrium is homogeneous. The endometrium measures 40 mm combined thickness and appears heterogeneous. No definite internal vascularity is seen. Ovaries: Right ovary is not visualized. The left ovary measures 3.0 x 2.6 x 1.6 cm, with a calculated ovarian volume of 6.5 cc. The left ovary as a normal sonographic appearance. No adnexal masses are seen. Other: No pathologic free abdominal or pelvic fluid. IMPRESSION: No intrauterine is seen. Heterogeneous thickened endometrium without definite internal vascularity, possibly related to echogenic blood products although retained products of conception are not entirely excluded and clinical follow-up is recommended with follow-up ultrasound as needed. Approved by: Sarabjit Caballero M.D. on 03/15/2025 at 9:08
[2025-03-15 08:54] LABS: Add Manual Diff / Slide Review NO; Hematocrit 26.4 % (36-46); Hemoglobin 7.9 g/dL (12.0-16.0); Lymphocytes Absolute Auto 3600 /uL (1100-4500); Mean Corpuscular HGB Conc 29.9 % (30-36); Mean Corpuscular Hemoglobin 17.3 PG (26-34); Mean Corpuscular Volume 57.7 fL (80-100); Platelet Count 515 X10^3/uL (150-400)
[2025-03-15 08:59] LABS: INR 1.1 (0.9-1.3); Prothrombin Time 12.6 SECONDS (9.4-12.5)
[2025-03-15 09:06] LABS: Anisocytosis 1+; Poikilocytosis 1+
--- NOTE | 2025-03-15 09:06 | PC.NURSE ---
Pt has known miscarriage at 14 wks, was seen by OB and had US last week. Pt began having heavy bleeding at 0600 today, passing clots and other tissue. Endorses dizziness and pelvic cramping.
[2025-03-15 09:16] LABS: Alanine Aminotransferase 12 IU/L (<35); Albumin 3.6 g/dL (3.5-5.0); Albumin Globulin Ratio 1.0 (1.0-2.8); Alkaline Phosphatase 66 U/L (38-126); Blood Urea Nitrogen 5 mg/dL (7-17); Calcium 9.0 mg/dL (8.4-10.2); Carbon Dioxide 20 mmol/L (22-32); Chloride 104 mmol/L (98-107); Estimated Glomerular Filt Rate > 60 mL/min (>60); Globulin 3.7 g/dL (1.7-4.1); Glucose 117 mg/dL (70-99); Potassium 3.5 mmol/L (3.4-5.1); Sodium 136 mmol/L (137-145); Total Protein 7.3 g/dL (6.3-8.2)
[2025-03-15 09:20] LABS: HEMOLYSIS < 15 (0-50)
[2025-03-15 09:34] LABS: HCG Quantitative /Beta subunit 3602.2 mIU/mL
--- NOTE | 2025-03-15 10:41 | P.HPOB_ITS ---
History of Present Illness History of Present Illness Reason for admission: vaginal bleeding Narrative: Angi Muniz is a 39 year old female presents to ED with heavy vaginal bleeding in setting of known incomplete SAB. Patient previously seen in ED 03/10 for same and received 2u pRBC for symptomatic acute blood loss anemia. Patient states this AM she experienced recurrent heavy vaginal bleeding with passage of clots while on the commode and became very lightheaded/dizzy and weak. Her had to carry her to the car and presented to ED. On arrival patient refused pelvic exam but endorsed continued vaginal bleeding. Hemodynamically stable however persistent anemia with h/h 7.9/26.4. [employer] WRITER consulted for further management recommendations. On interview patient is resting comfortably. She states that her pain is minimal but she is able to feel that the blood is still gushing out. Very pale, denies SOB/tachypnea. Last PO yesterday evening. [facility] Medical History (Updated 03/15/25 @ 10:45 by Alfreda Jones MD) Acute blood loss anemia examination following delivery Anemia (~1994) Surgical History (Updated 02/01/25 @ 15:49 by Lorelei Young, JONH) Previous section Family History (Updated 02/01/25 @ 15:58 by Lorelei Young RN) Mother Diabetes mellitus Hypertension Grandmother Brain aneurysm Father Cirrhosis Alcoholism Grandfather Kidney failure Grandfather Diabetes mellitus History of heart disease Social History marital status: number of children: 1 household members: spouse, family and children lives independently: Yes caregiver/support person: Yes housing: house pets and animals: Yes (small dog) education level: college occupational status: employed current occupational exposures/hazards: No special chris needs: No travel history: over 6 months ago seatbelt use: always helmet use: Yes water heater temp set < 120 deg: No (Will check and ) working smoke detector in home: Yes fire extinguisher in home: Yes carbon monox detector in home: Yes firearms in home: No do you feel safe at home: Yes (unable to ask about safety in marriage as present on speaker phone) second hand exposure: No alcohol intake: never substance use type: marijuana during the past year weight has: remained stable well-balanced diet: daily or most days daily servings fruits/ve-4 caffeine: No Type(s) of exercise: walking frequency: 3-4 times per week Meds Home Medications and Allergies Home Medications ?Medication ?Instructions ?Recorded ?Confirmed ?Type L.acid,shira-B.animal,bifid,infant See Rx Instructions .Route .COMPLEX 09/18/21 01/12/25 History 50 billion cell capsule,delayed rel ([place] [place] Women Probiotic) Held on 02/24/25. Instructions: valacyclovir 1 gram tablet See Rx Instructions .Route 05/03/24 01/12/25 Rx (Valtrex) .COMPLEX #20 tabs Held on 02/24/25. Instructions: escitalopram oxalate 10 mg tablet 10 mg PO DAILY #90 t abs 10/12/24 01/12/25 Rx (Lexapro) Held on 02/24/25. Instructions: dextroamphetamine-amphetamine 10 10 mg PO DAILY #30 ta bs 01/14/25 01/14/25 Rx mg tablet (Adderall) Held on 02/24/25. Instructions: dextroamphetamine-amphetamine 10 10 mg PO DAILY #30 ta bs 01/14/25 01/14/25 Rx mg tablet (Adderall) Held on 02/24/25. Instructions: dextroamphetamine-amphetamine 10 10 mg PO DAILY #30 ta bs 01/14/25 01/14/25 Rx mg tablet (Adderall) Held on 02/24/25. Instructions: dextroamphetamine-amphetamine ER 25 mg PO QAM #30 caps 01/14/25 01/14/25 Rx 25 mg 24hr capsule,extend release (Adderall XR) Held on 02/24/25. Instructions: dextroamphetamine-amphetamine ER 25 mg PO QAM #30 caps 01/14/25 01/14/25 Rx 25 mg 24hr capsule,extend release (Adderall XR) Held on 02/24/25. Instructions: dextroamphetamine-amphetamine ER 25 mg PO QAM #30 caps 01/14/25 01/14/25 Rx 25 mg 24hr capsule,extend release (Adderall XR) Held on 02/24/25. Instructions: omega 3-hny-yfm-fish oil 1,000 mg 3 cap PO DAILY 02/0102/01/25 History (120 mg-180 mg) capsule (Fish Oil) Held on 02/24/25. Instructions: vitamin-ferrous sulfate tab PO 02/01/2502/01 History 27 mg iron-folic acid 0.8 mg tablet ondansetron 4 mg disintegrating 4 mg PO Q8H PRN nausea and 02/20/25 02/20/25 Rx tablet vomiting #20 tabs Allergies Allergy/AdvReac Type Severity Reaction Status Date / Time Latex, Natural Rubber Allergy Severe Anaphylaxis Verified 02/01/25 15:36 Review of Systems Review of Systems ROS: Yes All systems reviewed with the patient and are negative except as otherwise documented Exam Vital Signs (past 8 hours): - 03/15/25 08:28 03/15/25 08:30 03/15/25 08:34 Temperature 98 F Pulse Rate 70 73 73 Respiratory Rate 17 Blood Pressure 104/56 L Pulse Oximetry 100 100 100 Oxygen Delivery Method Room Air 03/15/25 09:00 03/15/25 09:30 03/15/25 09:31 Temperature Pulse Rate 84 85 81 Respiratory Rate Blood Pressure Pulse Oximetry 100 100 100 Oxygen Delivery Method 03/15/25 09:31 Temperature Pulse Rate Respiratory Rate Blood Pressure 90/59 L Pulse Oximetry Oxygen Delivery Method Oxygen Delivery Method Room Air Const General: cooperative, comfortable and ill appearing Nutritional Appearance: average body habitus Orientation: alert, awake and oriented x3 Limitations: mental status not altered Resp Effort & Inspection: normal respiratory effort and able to speak in complete sentences Cardio Pulses: normal peripheral pulses GI Palpation: soft Other: peripad saturated with approx 50cc bright red bleeding, pt declines pelvic exam Skin General: no rashes or lesions noted Neuro General: patient alert, patient awake and patient oriented x3 Extrem General: normal to inspection Psych Mental Status: mental status grossly normal Judgment: judgment good Objective Labs 03/15/25 08:41 03/15/25 08:41 Labs: Laboratory Results - last 24 hr 03/15/25 08:41 WBC 8.2 RBC 4.57 Hgb 7.9 L Hct 26.4 L MCV 57.7 L D MCH 17.3 L MCHC 29.9 L RDW 23.8 H Plt Count 515 H Neut % (Auto) 47.7 L Lymph % (Auto) 43.7 H [place] % (Auto) 5.0 Eos % (Auto) 3.2 Baso % (Auto) 0.4 Neut # (Auto) 3900 Lymph # (Auto) 3600 [place] # (Auto) 400 Eos # (Auto) 300 Baso # (Auto) 0 RBC Morphology Not Reportable Poikilocytosis 1+ H Anisocytosis 1+ H PT 12.6 H INR 1.1 Sodium 136 L Potassium 3.5 Chloride 104 Carbon Dioxide 20 L BUN 5 L Creatinine 0.50 L Estimated GFR > 60 BUN/Creatinine Ratio 10.0 Glucose 117 H Calcium 9.0 Total Bilirubin 0.7 AST 20 ALT 12 Alkaline Phosphatase 66 Total Protein 7.3 Albumin 3.6 Globulin 3.7 Albumin/Globulin Ratio 1.0 HCG, Quant 3602.2 Blood Type O Positive Assessment & Plan Assessment and plan (1) Incomplete miscarriage: Status: Acute (2) Acute blood loss anemia: Status: Acute Assessment & Plan narrative: 39yo presents to ED with c/o heavy vaginal bleeding in setting of known incomplete SAB, acute on chronic symptomatic blood loss anemia Incomplete SAB, symptomatic acute blood loss anemia Patient and partner counseled on recommendation for either medical or surgical management given prolonged heavy vaginal bleeding with h/o recent transfusion In shared decision making model patient desires to proceed to OR for definitive surgical management verbal hand-off to Dr. Jonas who will be performing procedure OR notified, urgent add-on secondary to active bleeding 2g ancef preoperatively secondary to prolonged heavy vaginal bleeding anticipate need for transfusion of additional 1-2u pRBC following procedure pending intra/postoperative course Dispo: to OR Time-Based Coding :: [TOTAL MINUTES] spent with patient and on the chart (including review of chart, obtaining history, exam, reviewing outside data, placing orders, documenting exam and treatment plan, and counseling patient) on [DATE].
--- NOTE | 2025-03-15 10:50 | PM.PREOP ---
Pre-operative Note COVID-19 COVID-19 status: Not tested Interval Note History & Physical reviewed/Exam performed by Physician: Yes Changes to H&P: No ASA Class (for procedural sedation): II
--- NOTE | 2025-03-15 11:08 | SUR.OPER ---
Lithotomy on padded OR bed, head on pillow, arms secured on padded arm boards at <90 degrees abduction. Legs secured in padded yellow fins stirrups. Final positioning done by provider
[2025-03-15] MEDS: ONDANSETRON 4 MG/2 ML INJ IV (12:31)
[2025-03-15] MEDS: METOCLOPRAMIDE 10 MG/2 ML INJ IV (13:02)
--- NOTE | 2025-03-15 13:05 | PM.GYNOP.1 ---
Operative Date/Time/Diagnoses Date of procedure: 03/15/25 Time of procedure: 12:00 Pre-op diagnosis: incomplete Post-op diagnosis: same Procedure & Clinicians Procedure: Procedures Operation Date: 03/15/25 11:15 Actual Procedure Side Surgeon p Suction Dilation and Curettage Suzie Jonas DO Indications: Incomplete Surgeon: Suzie Jonas Anesthesia Type: MAC +/- Operative Notes Findings: dilated cervix, clots in the vaginal vault, moderate products of conception removed Specimen(s): products of conception Applied: none Estimated blood loss (mL): 250 Blood products transfused: packed red blood cells (1 unit to be transfused in PACU prior to discharge) Procedure in detail: DESCRIPTION OF OPERATION:? The patient was taken to the operating room where she was placed in the dorsal supine position and placed under LMA anesthesia. Legs were placed in yellow fin stirrups. The patient was then prepped and draped in the usual sterile fashion. Patient received 2gm IV ancef prior to procedure to reduce risk of post operative endometritis. A weighted speculum was placed in the posterior aspect of the vagina. [place] was placed in the anterior aspect of the vagina, and all the remaining blood clots were evacuated using the suction curette. The cervix was then grasped with a single-tooth tenaculum and noted to be dilated enough to accomodate the suction curette. Using a #10 curved suction curette, the products of conception were then removed with several passes with a large piece of tissue stuck on the tip. The #10 was then replaced with a #11 suction curette and all tissue removed. The Ultrasound was brought into the room and the uterus was noted to be empty with no evidence of retained tissue. Sharp curette was then performed in all four quadrants gently to ensure all tissue removed and the suction used one more time to remove any clots/debris. The patient did have some bleeding, so the uterus was then massaged and Tranexamic acid given. Once the uterus had contracted down and adequate hemostasis was noted, all instruments were removed from the vagina, and adequate hemostasis was noted. The patient was then awakened and taken to the recovery room in stable condition. Due to low starting hgb and heavy bleeding on presentation with symptoms of fatigue and dizziness-- will transfuse 1 unit PRBC prior to discharge from the hospital. Complications: none Post-operative Condition: stable Disposition: same day surgery Plan for aftercare: pelvic rest x 2 weeks
--- NOTE | 2025-03-15 13:18 | SUR.PHASEII ---
Call to Dr Jonas to ask about d/c vs admit; pt can be d/c'd after PRBC infused (compelted
--- NOTE | 2025-03-15 13:20 | SUR.PHASEII ---
Call to Dr Jonas to ask about d/c vs admit, pt can d/c after PRBCs infused (completed as of 1309) and pt voids; states she will enter d/c order now, pt to go home after successful void. Nausea more controlled now after IV reglan and saltine crackers.
== END 2025-03-15 13:52 | disposition home or self-care (01) ==
LOC: ED 10:33 → AC 10:34
PROVIDERS: Obstetrics & Gynecology; Admitting Provider Obstetrics & Gynecology; Emergency Provider Family Medicine; PCP Registered Nurse Diabetes Educator; Referring Provider Family Medicine; Visit Provider Obstetrics & Gynecology
PROC: (CPT 58120; principal; 2025-03-15 11:15)
DX: O03.1 Delayed or excessive hemorrhage following incomplete spontaneous abortion (principal); D62 Acute posthemorrhagic anemia
CPT/HCPCS: 59812; 36415; 36430; 76856; 80053; 84702; 85025; 85610; 86850; 86900; 86901; 96360; 99284; G0378; P9016; J0689; J1100; J2405; J2704; J2765; J3010; J7120